=== PATIENT | female | born 1960 | race Caucasian/White ===

== ENCOUNTER → 2017-09-07 | Outpatient (CLI) | payer BC ==
[~2017-09-07] MED LIST: ATV/1 PO; FLUO20CA35 PO; HYDR1TAB96 PO
--- NOTE | 2017-09-07 12:33 | DIAGNOSTIC IMAGING REPORT ---
L-SPINE MIN 4 VIEWS ROUTINE HISTORY: Pain. Neuropathy. PARESTHESIA OF SKIN COMPARISON: 11/06/2015 FINDINGS: Moderate scoliosis. Minimal grade 1 reversal subluxation of L2 on L3 secondary to degenerative changes of the posterior elements. Moderately progressive degenerative disc change throughout the entire lumbar region most pronounced at L2-L3. No evidence for compression deformity. IMPRESSION: Degenerative disc change considered progressive from the prior study of 2015. Stable lumbar scoliosis. The above report was generated using voice recognition software. It may contain grammatical, syntax or spelling errors. Electronically signed by: Irving Camarena M.D. 09/07/2017 12:32 PM Dictated Date/Time: 09/07/2017 12:29 PM
--- NOTE | 2017-09-07 12:36 | DIAGNOSTIC IMAGING REPORT ---
RIGHT HIP 2 VIEWS HISTORY: PARESTHESIA OF SKIN COMPARISON: None. FINDINGS: There is no fracture or dislocation. Soft tissues are unremarkable. The visualized pelvic bones are intact. Cartilage spaces within the right hip are maintained for age. Small calcification overlying the proximal hamstring muscles is likely due to an old injury. IMPRESSION: No significant abnormality within the right hip. Electronically signed by: Eulogio Wolfe M.D. 09/07/2017 12:35 PM Dictated Date/Time: 09/07/2017 12:34 PM
== END | disposition home or self-care (01) ==
LOC: C.RAD1850 12:10
PROVIDERS: ATTEND Student in an Organized Health Care Education/Training Program
DX: R20.2 Paresthesia of skin (principal); M51.36 Other intervertebral disc degeneration, lumbar region; M41.26 Other idiopathic scoliosis, lumbar region

== ENCOUNTER 2017-11-28 16:25 | Inpatient (IN) | payer BC, OTHER ==
[~2017-11-28] VITALS: Ht 172.7 cm; Wt 88.6 kg
[2017-11-28] MEDS ORDERED: ONDANSETRON INJ 2 MG/ML 2 ML VIAL IV STA (16:57)
[2017-11-28] MEDS: HYDROmorphone INJ 1 MG/ML SYR IV PRN ×4 (17:25→22:49)
[2017-11-28 17:31] LABS: BASO % 0.2 %; BASO ABS # 0.02 K/uL (0-0.2); HEMOGLOBIN 15.2 g/dL (12.0-16.0); IG# 0.07 K/uL (0.00-0.02); LYMPH % 9.5 %; LYMPH ABS # 0.85 K/uL (1.2-3.4); MEAN CELL VOLUME 97.5 fL (80-100); MEAN CORPUSCULAR HEMOGLOBIN 32.2 pg (25-34); MEAN PLATELET VOLUME 8.5 fL (7.4-10.4); MONO % 4.6 %; MONO ABS # 0.41 K/uL (0.11-0.59); NEUT % 84.9 %; NEUT ABS # 7.58 K/uL (1.4-6.5); PLATELET COUNT 307 K/uL (130-400); RED CELL DISTRIBUTION WIDTH CV 14.6 % (11.5-14.5); WHITE BLOOD COUNT 8.93 K/uL (4.8-10.8)
[2017-11-28 17:49] LABS: BLOOD UREA NITROGEN 17 mg/dl (7-18); CALCIUM 8.4 mg/dl (8.5-10.1); CARBON DIOXIDE 28 mmol/L (21-32); CREATININE 0.95 mg/dl (0.60-1.20); GLUCOSE 163 mg/dl (70-99); POTASSIUM 4.1 mmol/L (3.5-5.1); SODIUM 134 mmol/L (136-145)
[2017-11-28] MEDS ORDERED: PRED10TA PO (19:47)
[2017-11-28] MEDS ORDERED: [UNRECOGNIZED DRUG - OTHER] PO (19:47)
[2017-11-28] MEDS ORDERED: ERGO500037 PO (19:47)
[2017-11-28] MEDS ORDERED: GABA-113 PO (19:47)
[2017-11-28] MEDS ORDERED: CLON-460 PO (19:47)
[2017-11-28] MEDS ORDERED: TOPI50TA16 PO (19:47)
[2017-11-28] MEDS ORDERED: CALC1TAB62 PO (19:47)
--- NOTE | 2017-11-28 19:47 | DIAGNOSTIC IMAGING REPORT ---
LUMBAR SPINE W/O CONTRAST CLINICAL HISTORY: 57 years-old Female with Back pain, lumbar, weakness, can't walk. Acute low back pain with weakness COMPARISON: Lumbar spine radiographs 09/07/2017 TECHNIQUE: Multiplanar, multi sequence MRI of the lumbar spine was performed without intravenous contrast. FINDINGS: Study is limited secondary to patient motion. Mild convex left curvature of the lumbar spine. The cardiology physician localizer images demonstrate no gross abnormality of the abdomen, pelvis or paraspinal structures. There is suggestion of diastases recti. No aortic aneurysm or pathologic adenopathy identified. There is no acute fracture or focal bone marrow edema. No acute subluxation identified. Modic type III endplate changes are seen at L2-L3. Signal within the thoracic spinal cord appears unremarkable. T12-L1: Moderate intervertebral disc space narrowing with posterior spondylitic spurring and circumferential annular disc bulge. Small right paracentral disc protrusion causes mild right lateral recess narrowing. No significant central canal or foraminal stenosis. L1-L2: Mild to moderate intervertebral disc space narrowing with posterior spondylitic spurring and small circumferential annular disc bulge. Ligamentum flavum thickening with moderate facet arthrosis. No central canal narrowing. There is mild right foraminal stenosis. Left foramen is patent. L2-L3: Moderate intervertebral disc space narrowing with posterior spondylitic spurring and moderate circumferential annular disc bulge. Additionally, there is a right paracentral/right lateral recess disc extrusion measuring up to 0.7 x 1.2 x 1.2 cm in AP, transverse and cranial, dimensions extending inferiorly to the level of the mid L3 vertebral body. Severe facet arthrosis with ligamentum flavum thickening also noted. These findings cause severe central canal (thecal sac narrowed to 3 mm in AP dimension), severe right lateral recess, severe right foraminal and mild left foraminal stenosis. L3-L4: No significant intervertebral disc space narrowing. Posterior spondylitic spurring with small moderate disc bulge and posterior annular fissure. Moderate facet arthrosis with small right facet effusion and ligamentum flavum thickening. Thecal sac is narrowed to 6 mm in AP dimension resulting in moderate central canal, moderate right foraminal and mild left foraminal stenosis. L4-L5: Mild intervertebral disc space narrowing with posterior spondylitic spurring with small posterior disc bulge and broad-based left lateral recess/left foraminal disc protrusion. Additionally, there is moderate facet arthrosis with ligamentum flavum thickening. These findings cause mild left lateral recess, and moderate to severe left foraminal narrowing without significant right foraminal or central canal stenosis. L5-S1: Moderate intervertebral disc space narrowing with posterior spondylitic spurring and small circumferential annular disc bulge. Severe facet arthrosis with ligamentum flavum thickening. There is severe left and mild to moderate right foraminal narrowing. No significant central canal stenosis. IMPRESSION: 1. At L2-L3, circumferential disc bulge with right paracentral/right lateral recess disc extrusion, severe facet arthrosis with ligamentum flavum thickening causes severe central canal, severe right lateral recess, severe right foraminal and mild left foraminal stenosis. 2. At L3-L4, posterior spondylitic spurring with small moderate disc bulge and posterior annular fissure with facet arthrosis causes moderate central canal, moderate right foraminal and mild left foraminal stenosis. 3. No acute fracture or subluxation identified. 4. Motion degraded exam. The above report was generated using voice recognition software. It may contain grammatical, syntax or spelling errors. Electronically signed by: Raymond Diaz M.D. 11/28/2017 7:45 PM Dictated Date/Time: 11/28/2017 7:32 PM
[2017-11-28] MEDS ORDERED: DEXAMETHASONE **PF** INJ 10 MG/ML VIAL IV ONE (21:00)
[2017-11-28] MEDS ORDERED: POLYETHYLENE (MIRALAX) 17 GM PACK PO PRN (23:30)
[2017-11-28] MEDS ORDERED: MAGNESIUM HYDROXIDE SUSP 30 ML UDC PO PRN (23:30)
[2017-11-28] MEDS ORDERED: ZOLPIDEM TARTRATE 5 MG TAB PO PRN (23:30)
[2017-11-28] MEDS ORDERED: ACETAMINOPHEN 325 MG TAB PO PRN (23:30)
[2017-11-28] MEDS ORDERED: ALUMINUM/MAGNESIUM/SIMETH (MAALOX MAX) 30 ML UDC PO PRN (23:30)
[2017-11-28] MEDS ORDERED: ONDANSETRON INJ 2 MG/ML 2 ML VIAL IV PRN (23:30)
[2017-11-28] MEDS ORDERED: HYDROCODONE/ACETAMINOPHEN 7.5/325MG TAB PO PRN (23:45)
[2017-11-28] MEDS ORDERED: KETOROLAC TROMETHAMINE 30 MG/ML VIAL IV STA (23:46)
[2017-11-29] MEDS ORDERED: SODIUM CHLORIDE 0.9% 1000ML 1,000 ML IV SCH
--- NOTE | 2017-11-29 00:01 | History and Physical ---
History & Physical Date & Time of Service: Nov 28, 2017 at 23:52 Chief Complaint: Unable To Walk Primary Care Physician: Paco Mello M.D. History of Present Illness Source: patient 57 y/o F Hx HTN, anxiety/depression, chronic lower back pain. The pt presents with worsening lower back pain over the course of a week. She cannot currently ambulate due to severe pain with weight bearing and movement. She denies LE numbness or incontinence. A lumbar MRI was obtained showing L2-L3, circumferential disc bulge with right paracentral/right lateral recess disc extrusion. 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 Smoking Status: Former Smoker Drug Use: none Marital Status: Housing status: lives with family Allergies Coded Allergies: No Known Allergies (Unverified , 11/28/17) Home Medications Scheduled Calcium & Phosphorus W/ Vitami (Calcium), 1 TAB PO DAILY Clonidine HCl (Clonidine HCl), 0.3 MG PO HS Ergocalciferol (Vitamin D 32728 Unit), 50,000 UNIT PO WK Fluoxetine (Prozac), 20 MG PO DAILY Gabapentin (Neurontin), 300 MG PO QID Prednisone Tab (Prednisone), 10 MG PO DAILY Topiramate (Topamax), 50 MG PO BID [Fentraphen], 20 MG PO DAILY Scheduled PRN Hydrocodone-Acetaminophen (Hydrocodone Bitartrate/Ac), 1-2 TABS PO Q4 PRN for Pain Lorazepam (Ativan), 1 MG PO BID PRN for Anxiety Review of Systems Constitutional: No fever, No chills, No sweats Eyes: No worsening of vision ENT: No hearing loss, No unusual epistaxis, No nasal symptoms Respiratory: No cough, No sputum, No wheezing Cardiovascular: No chest pain Abdomen: No pain, No nausea, No vomiting Musculoskeletal: + problem reported (Back pain as above) Genitourinary - Female: No dysuria, No urinary frequency, No urinary urgency Neurologic: No memory loss, No paralysis, No weakness Psychiatric: No depression symptoms Endocrine: No fatigue Hematologic / Lymphatic: No abnormal bleeding/bruising Integumentary: No rash Physical Exam Vital Signs Date Time Temp Pulse Resp B/P (MAP) Pulse Ox O2 Delivery O2 Flow Rate FiO2 11/28/17 22:51 96 94 Nasal Cannula 2.0 11/28/17 22:36 112 22 144/102 94 Room Air 11/28/17 21:31 121/82 11/28/17 21:06 105 97 Nasal Cannula 2.0 11/28/17 21:01 109/86 11/28/17 20:57 105 97 11/28/17 20:31 103/79 11/28/17 20:17 106 94 11/28/17 20:12 101 94 Nasal Cannula 2.0 11/28/17 20:01 124/86 11/28/17 19:42 100 94 11/28/17 19:37 103 16 109/62 96 Nasal Cannula 2.0 11/28/17 18:39 102 16 124/78 98 Nasal Cannula 2.0 11/28/17 17:43 97 Nasal Cannula 2.0 11/28/17 17:43 112 20 101/73 88 Room Air 11/28/17 17:19 112 20 110/79 94 Room Air 11/28/17 17:18 Room Air 11/28/17 16:35 36.9 123 18 131/95 95 Room Air General Appearance: WD/WN, no apparent distress, + pertinent finding ( Overweight, middle-aged female in no distress when lying still) Head: normocephalic Eyes: normal inspection ENT: normal ENT inspection, pharynx normal Neck: supple Respiratory/Chest: chest non-tender Cardiovascular: regular rate, rhythm, no edema, no gallop Abdomen/GI: normal bowel sounds, non tender, soft Back: normal inspection, no CVA tenderness Extremities/Musculoskelatal: normal inspection, no calf tenderness, normal capillary refill Neurologic/Psych: oriented x 3, + pertinent finding (Leg raising is limited as it triggers pain, dorsiflexion and light touch are impaired in the distal L extremity - no other deficits are present) Skin: normal color Diagnostics Laboratory Results Results Past 24 Hours Test 11/28/17 16:50 11/28/17 17:12 11/28/17 23:51 Range/Units Urine Color YELLOW Urine Appearance CLEAR CLEAR Urine pH 6.5 4.5-7.5 Urine Specific [place] 1.006 1.000-1.030 Urine Protein NEG NEG Urine Glucose (UA) NEG NEG Urine Ketones NEG NEG Urine Occult Blood 2+ NEG Urine Nitrite NEG NEG Urine Bilirubin NEG NEG Urine Urobilinogen NEG NEG Urine Leukocyte Esterase TRACE NEG Urine WBC (Auto) 0-5 /hpf Urine RBC (Auto) 0-4 /hpf Urine Hyaline Casts (Auto) 0-5 /lpf Urine Epithelial Cells (Auto) 0-5 /lpf Urine Bacteria (Auto) NEG Urine RBC 10-30 0-4 /hpf Urine WBC 1-5 0-5 /hpf Urine Epithelial Cells 5-10 0-5 /lpf Urine Bacteria NEG NEG Urine Hyaline Casts 0 0-5 /lpf White Blood Count 8.93 4.8-10.8 K/uL Red Blood Count 4.72 4.2-5.4 M/uL Hemoglobin 15.2 12.0-16.0 g/dL Hematocrit 46.0 37-47 % Mean Corpuscular Volume 97.5 80-100 fL Mean Corpuscular Hemoglobin 32.2 25-34 pg Mean Corpuscular Hemoglobin Concent 33.0 32-36 g/dl Platelet Count 307 130-400 K/uL Mean Platelet Volume 8.5 7.4-10.4 fL Neutrophils (%) (Auto) 84.9 % Lymphocytes (%) (Auto) 9.5 % Monocytes (%) (Auto) 4.6 % Eosinophils (%) (Auto) 0.0 % Basophils (%) (Auto) 0.2 % Neutrophils # (Auto) 7.58 1.4-6.5 K/uL Lymphocytes # (Auto) 0.85 1.2-3.4 K/uL Monocytes # (Auto) 0.41 0.11-0.59 K/uL Eosinophils # (Auto) 0.00 0-0.5 K/uL Basophils # (Auto) 0.02 0-0.2 K/uL RDW Standard Deviation 52.0 36.4-46.3 fL RDW Coefficient of Variation 14.6 11.5-14.5 % Immature Granulocyte % (Auto) 0.8 % Immature Granulocyte # (Auto) 0.07 0.00-0.02 K/uL Erythrocyte Sedimentation Rate 40 0-21 mm/hr Sodium Level 134 136-145 mmol/L Potassium Level 4.1 3.5-5.1 mmol/L Chloride Level 100 98-107 mmol/L Carbon Dioxide Level 28 21-32 mmol/L Anion Gap 6.0 3-11 mmol/L Blood Urea Nitrogen 17 7-18 mg/dl Creatinine 0.95 0.60-1.20 mg/dl Estimated GFR () 76.0 Estimated GFR (Non- 65.6 BUN/Creatinine Ratio 18.2 10-20 Random Glucose 163 70-99 mg/dl Calcium Level 8.4 8.5-10.1 mg/dl C-Reactive Protein 1.32 0-0.29 mg/dl Microbiology Results 11/28/17 Urine Culture, Received Pending Diagnostic Radiology Lumbar MRI 1. At L2-L3, circumferential disc bulge with right paracentral/right lateral recess disc extrusion, severe facet arthrosis with ligamentum flavum thickening causes severe central canal, severe right lateral recess, severe right foraminal and mild left foraminal stenosis. 2. At L3-L4, posterior spondylitic spurring with small moderate disc bulge and posterior annular fissure with facet arthrosis causes moderate central canal, moderate right foraminal and mild left foraminal stenosis. 3. No acute fracture or subluxation identified. Impression Assessment and Plan 57 y/o F Hx HTN, anxiety/depression, migraines, chronic lower back pain. The pt presents with worsening lower back pain over the course of a week. She cannot currently ambulate due to severe pain with weight bearing and movement. She denies LE numbness or incontinence. A lumbar MRI was obtained showing L2-L3, circumferential disc bulge with right paracentral/right lateral recess disc extrusion. 1) Lower back pain and gait difficulty - The pt states she has failed PT prior. We will treat her with supportive measures/pain control and consult her orthopedist AM. She received Decadron in the ER. We will increase her daily Prednisone dose. Cont Gabapentin. Additional PT will be to the discretion of her orthopedist. 2) HTN - Cont HS Clonidine. 3) Anxiety/Depression - Cont Fluoxetine, Lorazepam 4) Migraines - cont Topamax Full code - Heparin prophylaxis Total time for this admit including review of labs, meds, imaging, records - discussion with pt and ER attending - 35 min Resuscitation Status VTE Prophylaxis Will order VTE Prophylaxis: Yes
--- NOTE | 2017-11-29 00:14 | EMERGENCY ROOM VISIT NOTE ---
History Report prepared by Lewis: Kalin Hook Under the Supervision of: Dr. Kolton Mcgee M.D. First contact with patient: 16:48 Chief Complaint: BACK PAIN Stated Complaint: UNABLE TO WALK History of Present Illness The patient is a 57 year old female who presents to the Emergency Room with complaints of constant, severe back pain beginning a week ago. The patient states she experienced a flare-up yesterday that moved across her buttock that extends down to her legs. She reports she cannot stand up on her own because her legs are too weak to hold her. The patient notes she has a history of back pain, but it has never been this severe. She currently rates her discomfort a 10 /10 in severity. The patient states she had an x-ray and physical therapy. She reports she had to stop because she still has numbness in her right leg. The patient notes she has tried different medications, but none of them are working. Pt denies LOC, headache, fevers, chills, diaphoresis, visual changes, neck pain, chest pain, breathing difficulties, nausea, vomiting, abdominal pain , melena, hematochezia, urinary symptoms, numbness, lymphadenopathy, rash, or other complaints. Source of History: patient Onset: a week ago with a flare-up yesterday Position: back (lower) Symptom Intensity: 10/10 Timing: constant Modifying Factors (Worsening): other (standing) Associated Symptoms: + weakness (in her legs) Review of Systems See HPI for pertinent positives and negatives. A total of ten systems were reviewed and were otherwise negative. Past Medical & Surgical Medical Problems: (1) Frequent headaches (2) Gait difficulty Surgical Problems: (1) H/O: hysterectomy Family History Cancer Diabetes mellitus Social History Smoking Status: Former Smoker Alcohol Use: none Drug Use: none Marital Status: Housing Status: lives with family Current/Historical Medications Scheduled Calcium & Phosphorus W/ Vitami (Calcium), 1 TAB PO DAILY Clonidine HCl (Clonidine HCl), 0.3 MG PO HS Ergocalciferol (Vitamin D 51893 Unit), 50,000 UNIT PO WK Fluoxetine (Prozac), 20 MG PO DAILY Gabapentin (Neurontin), 300 MG PO QID Prednisone Tab (Prednisone), 10 MG PO DAILY Topiramate (Topamax), 50 MG PO BID [Fentraphen], 20 MG PO DAILY Scheduled PRN Hydrocodone-Acetaminophen (Hydrocodone Bitartrate/Ac), 1-2 TABS PO Q4 PRN for Pain Lorazepam (Ativan), 1 MG PO BID PRN for Anxiety Allergies Coded Allergies: No Known Allergies (Unverified , 11/28/17) Physical Exam Vital Signs Date Time Temp Pulse Resp B/P (MAP) Pulse Ox O2 Delivery O2 Flow Rate FiO2 11/28/17 22:51 96 94 Nasal Cannula 2.0 11/28/17 22:36 112 22 144/102 94 Room Air 11/28/17 21:31 121/82 11/28/17 21:06 105 97 Nasal Cannula 2.0 11/28/17 21:01 109/86 11/28/17 20:57 105 97 11/28/17 20:31 103/79 11/28/17 20:17 106 94 11/28/17 20:12 101 94 Nasal Cannula 2.0 11/28/17 20:01 124/86 11/28/17 19:42 100 94 11/28/17 19:37 103 16 109/62 96 Nasal Cannula 2.0 11/28/17 18:39 102 16 124/78 98 Nasal Cannula 2.0 11/28/17 17:43 97 Nasal Cannula 2.0 11/28/17 17:43 112 20 101/73 88 Room Air 11/28/17 17:19 112 20 110/79 94 Room Air 11/28/17 17:18 Room Air 11/28/17 16:35 36.9 123 18 131/95 95 Room Air Physical Exam GENERAL: Awake, alert, uncomfortable-appearing, in no distress HENT: Normocephalic, atraumatic. Oropharynx unremarkable. EYES: Normal conjunctiva. Sclera non-icteric. NECK: Supple. No nuchal rigidity. FROM. No masses. RESPIRATORY: Clear to auscultation. No wheezes. No rales. Normal respiratory effort. CARDIAC: Tachycardic rate. Normal rhythm. No murmurs. No rubs. Extremities warm and well perfused. Pulses equal. No JVD. GI: Soft, non-distended. No tenderness to palpation. No rebound or guarding. No masses. RECTAL: Deferred. MUSCULOSKELETAL: Atraumatic. Chest examination reveals no tenderness. The back is symmetrical on inspection without obvious abnormality. There is no CVA tenderness to palpation. No joint edema. LOWER EXTREMITIES: Calves are equal size bilaterally and non-tender. No edema. No discoloration. NEURO: Normal sensorium. No sensory or motor deficits noted. No saddle anesthesia. 2+ reflexes bilaterally. 4/5 strength with dorsi-plantar flexion. SKIN: No rash or jaundice noted. Medical Decision & Procedures ER Provider Diagnostic Interpretation: Radiology results as stated below per my review and radiologist interpretation: LUMBAR SPINE W/O CONTRAST CLINICAL HISTORY: 57 years-old Female with Back pain, lumbar, weakness, can't walk. Acute low back pain with weakness COMPARISON: Lumbar spine radiographs 09/07/2017 TECHNIQUE: Multiplanar, multi sequence MRI of the lumbar spine was performed without intravenous contrast. FINDINGS: Study is limited secondary to patient motion. Mild convex left curvature of the lumbar spine. The design consultant localizer images demonstrate no gross abnormality of the abdomen, pelvis or paraspinal structures. There is suggestion of diastases recti. No aortic aneurysm or pathologic adenopathy identified. There is no acute fracture or focal bone marrow edema. No acute subluxation identified. Modic type III endplate changes are seen at L2-L3. Signal within the thoracic spinal cord appears unremarkable. T12-L1: Moderate intervertebral disc space narrowing with posterior spondylitic spurring and circumferential annular disc bulge. Small right paracentral disc protrusion causes mild right lateral recess narrowing. No significant central canal or foraminal stenosis. L1-L2: Mild to moderate intervertebral disc space narrowing with posterior spondylitic spurring and small circumferential annular disc bulge. Ligamentum flavum thickening with moderate facet arthrosis. No central canal narrowing. There is mild right foraminal stenosis. Left foramen is patent. L2-L3: Moderate intervertebral disc space narrowing with posterior spondylitic spurring and moderate circumferential annular disc bulge. Additionally, there is a right paracentral/right lateral recess disc extrusion measuring up to 0.7 x 1.2 x 1.2 cm in AP, transverse and cranial, dimensions extending inferiorly to the level of the mid L3 vertebral body. Severe facet arthrosis with ligamentum flavum thickening also noted. These findings cause severe central canal (thecal sac narrowed to 3 mm in AP dimension), severe right lateral recess, severe right foraminal and mild left foraminal stenosis. L3-L4: No significant intervertebral disc space narrowing. Posterior spondylitic spurring with small moderate disc bulge and posterior annular fissure. Moderate facet arthrosis with small right facet effusion and ligamentum flavum thickening. Thecal sac is narrowed to 6 mm in AP dimension resulting in moderate central canal, moderate right foraminal and mild left foraminal stenosis. L4-L5: Mild intervertebral disc space narrowing with posterior spondylitic spurring with small posterior disc bulge and broad-based left lateral recess/left foraminal disc protrusion. Additionally, there is moderate facet arthrosis with ligamentum flavum thickening. These findings cause mild left lateral recess, and moderate to severe left foraminal narrowing without significant right foraminal or central canal stenosis. L5-S1: Moderate intervertebral disc space narrowing with posterior spondylitic spurring and small circumferential annular disc bulge. Severe facet arthrosis with ligamentum flavum thickening. There is severe left and mild to moderate right foraminal narrowing. No significant central canal stenosis. IMPRESSION: 1. At L2-L3, circumferential disc bulge with right paracentral/right lateral recess disc extrusion, severe facet arthrosis with ligamentum flavum thickening causes severe central canal, severe right lateral recess, severe right foraminal and mild left foraminal stenosis. 2. At L3-L4, posterior spondylitic spurring with small moderate disc bulge and posterior annular fissure with facet arthrosis causes moderate central canal, moderate right foraminal and mild left foraminal stenosis. 3. No acute fracture or subluxation identified. 4. Motion degraded exam. The above report was generated using voice recognition software. It may contain grammatical, syntax or spelling errors. Electronically signed by: Raymond Diaz M.D. 11/28/2017 7:45 PM Dictated Date/Time: 11/28/2017 7:32 PM Laboratory Results 11/28/17 17:12 Red Blood Count 4.72, Mean Corpuscular Volume 97.5, Mean Corpuscular Hemoglobin 32.2, Mean Corpuscular Hemoglobin Concent 33.0, Mean Platelet Volume 8.5, Neutrophils (%) (Auto) 84.9, Lymphocytes (%) (Auto) 9.5, Monocytes (%) (Auto) 4.6, Eosinophils (%) (Auto) 0.0, Basophils (%) (Auto) 0.2, Neutrophils # (Auto) 7.58, Lymphocytes # (Auto) 0.85, Monocytes # (Auto) 0.41, Eosinophils # (Auto) 0.00, Basophils # (Auto) 0.02 11/28/17 17:12 Test 11/28/17 16:50 11/28/17 17:12 11/28/17 23:51 Urine Color YELLOW Urine Appearance CLEAR (CLEAR) Urine pH 6.5 (4.5-7.5) Urine Specific [place] 1.006 (1.000-1.030) Urine Protein NEG (NEG) Urine Glucose (UA) NEG (NEG) Urine Ketones NEG (NEG) Urine Occult Blood 2+ (NEG) Urine Nitrite NEG (NEG) Urine Bilirubin NEG (NEG) Urine Urobilinogen NEG (NEG) Urine Leukocyte Esterase TRACE (NEG) Urine WBC (Auto) /hpf (0-5) Urine RBC (Auto) /hpf (0-4) Urine Hyaline Casts (Auto) /lpf (0-5) Urine Epithelial Cells (Auto) /lpf (0-5) Urine Bacteria (Auto) (NEG) Urine RBC 10-30 /hpf (0-4) Urine WBC 1-5 /hpf (0-5) Urine Epithelial Cells 5-10 /lpf (0-5) Urine Bacteria NEG (NEG) Urine Hyaline Casts 0 /lpf (0-5) White Blood Count 8.93 K/uL (4.8-10.8) Red Blood Count 4.72 M/uL (4.2-5.4) Hemoglobin 15.2 g/dL (12.0-16.0) Hematocrit 46.0 % (37-47) Mean Corpuscular Volume 97.5 fL (80-100) Mean Corpuscular Hemoglobin 32.2 pg (25-34) Mean Corpuscular Hemoglobin Concent 33.0 g/dl (32-36) Platelet Count 307 K/uL (130-400) Mean Platelet Volume 8.5 fL (7.4-10.4) Neutrophils (%) (Auto) 84.9 % Lymphocytes (%) (Auto) 9.5 % Monocytes (%) (Auto) 4.6 % Eosinophils (%) (Auto) 0.0 % Basophils (%) (Auto) 0.2 % Neutrophils # (Auto) 7.58 K/uL (1.4-6.5) Lymphocytes # (Auto) 0.85 K/uL (1.2-3.4) Monocytes # (Auto) 0.41 K/uL (0.11-0.59) Eosinophils # (Auto) 0.00 K/uL (0-0.5) Basophils # (Auto) 0.02 K/uL (0-0.2) RDW Standard Deviation 52.0 fL (36.4-46.3) RDW Coefficient of Variation 14.6 % (11.5-14.5) Immature Granulocyte % (Auto) 0.8 % Immature Granulocyte # (Auto) 0.07 K/uL (0.00-0.02) Erythrocyte Sedimentation Rate 40 mm/hr (0-21) Anion Gap 6.0 mmol/L (3-11) Estimated GFR () 76.0 Estimated GFR (Non- 65.6 BUN/Creatinine Ratio 18.2 (10-20) Calcium Level 8.4 mg/dl (8.5-10.1) C-Reactive Protein 1.32 mg/dl (0-0.29) Laboratory results reviewed by me Medications Administered Medications (Trade) Dose Ordered Sig/[place] Route Start Time Stop Time Status Last Admin Dose Admin Ondansetron HCl (Zofran Inj) 4 mg NOW STAT IV 11/28/17 16:57 11/28/17 16:59 DC 11/28/17 17:24 4 MG Hydromorphone HCl (Dilaudid Inj) 1 mg Q15M PRN IV 11/28/17 17:00 12/12/17 16:59 11/28/17 22:49 1 MG Dexamethasone Sodium Phosphate (Dexamethasone Inj Pf) 10 mg NOW ONCE IV 11/28/17 21:00 11/28/17 21:01 DC 11/28/17 21:13 10 MG ED Course 1654: The patient was evaluated in room B12B. A complete history and physical exam was performed. 1656: Ordered Ondansetron HCl 4mg IV 1700: Ordered Hydromorphone HCl 1mg IV 2100: Ordered Dexamethasone Sodium Phosphate 10mg IV 2123: I discussed the patient's case with Dr. Faith, [facility]. He states if the patient wants to be discharged, he will see her in the office. He notes if the patient is wants further evaluation, admit the patient to medicine and he will consult. 2139: I reevaluated the patient and discussed my consult with Dr. Faith. The patient would prefer to go home. The nursing staff is performing an ambulatory trial. 2233: Upon reexamination, the patient was not able to ambulate well. I discussed the test results and treatment plan with her. The patient will be evaluated for further management. 2241: I discussed the patient's case with Dr. Bangura [facility] Hospitalist. The patient will be evaluated for further management and care. Medical Decision Prior records/ancillary studies reviewed. Triage Nursing notes reviewed and agree them. Additional history obtained from the family. The patient's history was concerning for back pain. Differential diagnosis: Etiologies such as fracture, aortic disease, metastatic disease, cord compression, discitis, infection, renal colic, gastrointestinal, lumbago, sciatica, cauda equina, as well as others were entertained. Physical findings: As above. The patient was very uncomfortable. ER treatment provided: IV Dilaudid times multiple doses IV Zofran IV Decadron On reassessment the patient felt marginal better. Diagnostics interpreted by me: The labs revealed an unremarkable CBC. Inflammatory markers mildly elevated. Chemistry panel unremarkable. Imaging studies: MRI as above Consultation: A consultation was placed with Dr. Faith of orthopedic spine. The case was discussed. He offered to see the patient in the office but recommended admission if her pain was uncontrolled. Unfortunately patient had severe pain with attempted ambulation. She has significant disc herniation with impingement on the nerve roots. She agreed to come in the hospital. Consultation was made with internal medicine. The case was discussed and diagnostics were reviewed. The patient was evaluated in the ER for further treatment. Medication Reconcilliation Current Medication List: was personally reviewed by me Blood Pressure Screening Patient's blood pressure: Normal blood pressure Blood pressure disposition: Did not require urgent referral Consults Time Called: 2057 Consulting Physician: Yannick Escalante Returned Call: 2123 I discussed the patient's case with Yannick Escalante. He states if the patient wants to be discharged, he will see her in the office. He notes if the patient is wants further evaluation, admit the patient to medicine and he will consult. Additional Consults: Time Called: 2237 Consulted Physician: Dr. Bangura [facility] Hospitalist Returned Call: [phone] Additional Comments: I discussed the patient's case with Dr. Bangura, [facility] Hospitalist. The patient will be evaluated for further management and care. Impression Primary Impression: Lumbar herniated disc Additional Impressions: Ambulatory dysfunction Intractable back pain Scribe Attestation The scribe's documentation has been prepared under my direction and personally reviewed by me in its entirety. I confirm that the note above accurately reflects all work, treatment, procedures, and medical decision making performed by me. Departure Information Dispostion Being Evaluated By Hospitalist Referrals Paco Mello M.D. (PCP) Patient Instructions My [facility] Problem Qualifiers
[2017-11-29] MEDS ORDERED: IV FLUIDS COMPLETED PRN (00:30)
[2017-11-29 01:00] VITALS: BP 114/82; PULSE 95; TEMP 36.7; O2SAT 96; Ht 172.7 cm; Wt 88.6 kg
[2017-11-29 04:05] LABS: PTT PATIENT 27.7 SECONDS (21.0-31.0)
[2017-11-29] MEDS: HEPARIN SOD 5000 UNIT/0.5 ML CARP SQ SCH ×3 (05:29→21:40)
[2017-11-29] MEDS: HYDROCODONE/ACETAMINOPHEN 7.5/325MG TAB PO PRN ×2 (07:46→16:34)
[2017-11-29 08:16] VITALS: BP 120/86; PULSE 100; TEMP 36.3; O2SAT 94
[2017-11-29] MEDS: FLUOXETINE HCL 20 MG CAP PO SCH (08:16)
[2017-11-29] MEDS: GABAPENTIN 300 MG CAP PO SCH ×4 (08:16→21:41)
[2017-11-29] MEDS: TOPIRAMATE 50 MG TAB PO SCH ×2 (08:17→21:40)
[2017-11-29 09:18] VITALS: O2SAT 95
[2017-11-29] MEDS: HYDROmorphone INJ 1 MG/ML SYR IV PRN ×2 (12:09→20:05)
[2017-11-29 12:27] VITALS: BP 128/84; PULSE 114; TEMP 36.9; O2SAT 94
--- NOTE | 2017-11-29 13:28 | Hospitalist Progress Note ---
Hospitalist Progress Note Date of Service Nov 29, 2017. Subjective Pt evaluation today including: conversation w/ patient, conversation w/ family ( at bedside ), physical exam, lab review, review of studies, review of inpatient medication list Voiding: no voiding problems Patient resting in bed. Eating and drinking OK. Denies knowledge of any back injuries. Works at [employer]. Just ambulated to restroom with severe pain. RN to give PRN IV Dilaudid. Patient very tearful due to pain. 1 episode of bowel incontinence on Wednesday. Severe pain/numbness/tingling from lower back/hips to knees. No pain at rest and PRN are medications are controlling pain. Denied Lidoderm patch or Patient denies any fever, chills, sweats, lightheadedness, dizziness, vision changes, CP, palpitations, edema, SOB, wheezing, cough, abdominal pain, nausea, vomiting, diarrhea, urinary symptoms, melena, weakness, anxiety/depression, active bleeding, or new skin discoloration/changes. Medications Current Inpatient Medications Medications (Trade) Dose Ordered Sig/[place] Route Start Time Stop Time Status Last Admin Dose Admin Prednisone (PredniSONE TAB) 40 mg DAILY PO 11/29/17 09:00 12/29/17 08:59 11/29/17 08:17 40 MG Hydromorphone HCl (Dilaudid Inj) 1 mg Q3H PRN IV 11/28/17 23:30 12/12/17 23:29 11/29/17 12:09 1 MG Heparin Sodium (Porcine) (Heparin Sq 5000 Unit/0.5ml) 5,000 unit Q8H SQ 11/29/17 06:00 12/29/17 05:59 11/29/17 05:29 5,000 UNIT Acetaminophen (Tylenol Tab) 650 mg Q4H PRN PO 11/28/17 23:30 12/28/17 23:29 Al Hydrox/Mg Hydrox/Simethicone (Maalox Max Susp) 15 ml Q4H PRN PO 11/28/17 23:30 12/28/17 23:29 Magnesium Hydroxide (Milk Of Magnesia Susp) 30 ml Q6H PRN PO 11/28/17 23:30 12/28/17 23:29 Polyethylene (Miralax Powder Packet) 17 gm DAILY PRN PO 11/28/17 23:30 12/28/17 23:29 Ondansetron HCl (Zofran Inj) 4 mg Q6H PRN IV 11/28/17 23:30 12/28/17 23:29 Clonidine HCl (Catapres Tab) 0.3 mg HS PO 11/29/17 21:00 12/29/17 20:59 Fluoxetine HCl (Prozac Cap) 20 mg DAILY PO 11/29/17 09:00 12/29/17 08:59 11/29/17 08:16 20 MG Gabapentin (Neurontin Cap) 300 mg QID PO 11/29/17 09:00 12/29/17 08:59 11/29/17 08:16 300 MG Lorazepam (Ativan Tab) 1 mg BID PRN PO 11/28/17 23:45 12/28/17 23:44 Topiramate (Topamax Tab) 50 mg BID PO 11/29/17 09:00 12/29/17 08:59 11/29/17 08:17 50 MG Acetaminophen/ Hydrocodone Bitart (Yancey 7.5/325 Tab) 2 tab Q6 PRN PO 11/28/17 23:55 12/28/17 23:44 11/29/17 07:46 2 TAB Miscellaneous (Iv Fluids Completed) 1 ea PRN PRN N/A 11/29/17 00:30 11/29/18 00:29 Objective Vital Signs Date Time Temp Pulse Resp B/P (MAP) Pulse Ox O2 Delivery O2 Flow Rate FiO2 11/29/17 12:27 36.9 114 16 128/84 (99) 94 Room Air 11/29/17 09:18 95 Room Air 11/29/17 08:16 36.3 100 16 120/86 (97) 94 Room Air 11/29/17 07:50 Room Air 11/29/17 01:00 36.7 95 20 114/82 (93) 96 Room Air 11/29/17 01:00 96 Room Air 11/29/17 01:00 36.7 95 20 114/82 96 Room Air 11/29/17 00:29 124/78 11/29/17 00:26 91 18 95 Nasal Cannula 2.0 11/28/17 23:56 93 95 11/28/17 23:26 96 93 11/28/17 22:56 96 95 11/28/17 22:51 96 94 Nasal Cannula 2.0 11/28/17 22:36 112 22 144/102 94 Room Air 11/28/17 21:31 121/82 11/28/17 21:06 105 97 Nasal Cannula 2.0 11/28/17 21:01 109/86 11/28/17 20:57 105 97 11/28/17 20:31 103/79 11/28/17 20:17 106 94 11/28/17 20:12 101 94 Nasal Cannula 2.0 11/28/17 20:01 124/86 11/28/17 19:42 100 94 11/28/17 19:37 103 16 109/62 96 Nasal Cannula 2.0 11/28/17 18:39 102 16 124/78 98 Nasal Cannula 2.0 11/28/17 17:43 97 Nasal Cannula 2.0 11/28/17 17:43 112 20 101/73 88 Room Air 11/28/17 17:19 112 20 110/79 94 Room Air 11/28/17 17:18 Room Air 11/28/17 16:35 36.9 123 18 131/95 95 Room Air Physical Exam General Appearance: + mild distress Eyes: normal inspection, PERRL ENT: hearing grossly normal Neck: supple Respiratory/Chest: lungs clear, no respiratory distress, no accessory muscle use Cardiovascular: regular rate, rhythm Abdomen: normal bowel sounds, non tender, soft Extremities: no pedal edema, no calf tenderness Neurologic/Psychiatric: alert, oriented x 3, + motor weakness (mild weakness to bilateral LEs), + pertinent finding (tearful due to pain/situation ) Skin: normal color, warm/dry, no rash Laboratory Results Last 24 Hours Test 11/28/17 16:50 11/28/17 17:12 Urine Color YELLOW Urine Appearance CLEAR Urine pH 6.5 Urine Specific [place] 1.006 Urine Protein NEG Urine Glucose (UA) NEG Urine Ketones NEG Urine Occult Blood 2+ Urine Nitrite NEG Urine Bilirubin NEG Urine Urobilinogen NEG Urine Leukocyte Esterase TRACE Urine WBC (Auto) /hpf Urine RBC (Auto) /hpf Urine Hyaline Casts (Auto) /lpf Urine Epithelial Cells (Auto) /lpf Urine Bacteria (Auto) Urine RBC 10-30 /hpf Urine WBC 1-5 /hpf Urine Epithelial Cells 5-10 /lpf Urine Bacteria NEG Urine Hyaline Casts 0 /lpf White Blood Count 8.93 K/uL Red Blood Count 4.72 M/uL Hemoglobin 15.2 g/dL Hematocrit 46.0 % Mean Corpuscular Volume 97.5 fL Mean Corpuscular Hemoglobin 32.2 pg Mean Corpuscular Hemoglobin Concent 33.0 g/dl Platelet Count 307 K/uL Mean Platelet Volume 8.5 fL Neutrophils (%) (Auto) 84.9 % Lymphocytes (%) (Auto) 9.5 % Monocytes (%) (Auto) 4.6 % Eosinophils (%) (Auto) 0.0 % Basophils (%) (Auto) 0.2 % Neutrophils # (Auto) 7.58 K/uL Lymphocytes # (Auto) 0.85 K/uL Monocytes # (Auto) 0.41 K/uL Eosinophils # (Auto) 0.00 K/uL Basophils # (Auto) 0.02 K/uL RDW Standard Deviation 52.0 fL RDW Coefficient of Variation 14.6 % Immature Granulocyte % (Auto) 0.8 % Immature Granulocyte # (Auto) 0.07 K/uL Erythrocyte Sedimentation Rate 40 mm/hr Prothrombin Time 10.8 SECONDS Prothromb Time International Ratio 1.0 Activated Partial Thromboplast Time 27.7 SECONDS Partial Thromboplastin Ratio 1.1 Sodium Level 134 mmol/L Potassium Level 4.1 mmol/L Chloride Level 100 mmol/L Carbon Dioxide Level 28 mmol/L Anion Gap 6.0 mmol/L Blood Urea Nitrogen 17 mg/dl Creatinine 0.95 mg/dl Estimated GFR () 76.0 Estimated GFR (Non- 65.6 BUN/Creatinine Ratio 18.2 Random Glucose 163 mg/dl Calcium Level 8.4 mg/dl C-Reactive Protein 1.32 mg/dl Assessment and Plan 57 y/o F Hx HTN, anxiety/depression, migraines, chronic lower back pain. The pt presents with worsening lower back pain over the course of a week. She cannot currently ambulate due to severe pain with weight bearing and movement. She denies LE numbness or incontinence. A lumbar MRI was obtained showing L2-L3, circumferential disc bulge with right paracentral/right lateral recess disc extrusion. Lower back pain and gait difficulty: - Admitted to med/surg - Pain control w/ Yancey PRN and IV Dilaudid PRN. - Prednisone 40 mg daily, Gabapentin 300 mg QID - MRI: -- L2-L3, circumferential disc bulge with right paracentral/right lateral recess disc extrusion, severe facet arthrosis with ligamentum flavum thickening causes severe central canal, severe right lateral recess, severe right foraminal and mild left foraminal stenosis. -- At L3-L4, posterior spondylitic spurring with small moderate disc bulge and posterior annular fissure with facet arthrosis causes moderate central canal , moderate right foraminal and mild left foraminal stenosis. - PT/OT as per orthopedics - Orthopedics consulted, appreciate recommendations HTN- STABLE: Continue Clonidine 0.3 mg HS Anxiety, depression: Continue Fluoxetine, Lorazepam BID PRN Migraines: Continue Topamax 50 mg BID DVT prophylaxis: Heparin SQ TID Code status: LEVEL I, FULL Dispo: From home, lives w/ - discharge uncertain at this time
--- NOTE | 2017-11-29 15:18 | Orthopedic Consultation ---
Orthopedic Consultation Date of Consultation: Nov 29, 2017. Attending Physician: Marcos Cormier D.O. Reason for Consultation: Back and bilateral leg pain History of Present Illness This is a very pleasant 57-year-old female that had a history of worsening back and leg pain over the past several months. She has undergone both medical management as well as a course of physical therapy without significant improvement. Unfortunately over the past several days she has had a marked decline in status. She denies any precipitating trauma fall or event. She describes incapacitating pain and inability to ambulate. The pattern of pain is in the bilateral buttock anterior thighs. It does not extend below the knees. Standing and walking is remarkably difficult requiring the assistance of her family. She subsequently came to emergency room for evaluation. MRI was obtained and she was admitted for pain control. She denies any loss of bowel or bladder control. She describes bilateral quadricep weakness. Past Medical/Surgical History Medical Problems: (1) Ambulatory dysfunction Status: Acute (2) Intractable back pain Status: Acute (3) Lumbar herniated disc Status: Acute Family History Cancer Diabetes mellitus Social History Smoking Status: Former Smoker Drug Use: none Marital Status: Housing Status: lives with family Allergies Coded Allergies: No Known Allergies (Unverified , 11/28/17) Home Medications Scheduled Calcium & Phosphorus W/ Vitami (Calcium), 1 TAB PO DAILY Clonidine HCl (Clonidine HCl), 0.3 MG PO HS Ergocalciferol (Vitamin D 13034 Unit), 50,000 UNIT PO WK Fluoxetine (Prozac), 20 MG PO DAILY Gabapentin (Neurontin), 300 MG PO QID Prednisone Tab (Prednisone), 10 MG PO DAILY Topiramate (Topamax), 50 MG PO BID [Fentraphen], 20 MG PO DAILY Scheduled PRN Hydrocodone-Acetaminophen (Hydrocodone Bitartrate/Ac), 1-2 TABS PO Q4 PRN for Pain Lorazepam (Ativan), 1 MG PO BID PRN for Anxiety Current Inpatient Medications Current Inpatient Medications Medications (Trade) Dose Ordered Sig/[place] Route Start Time Stop Time Status Last Admin Dose Admin Prednisone (PredniSONE TAB) 40 mg DAILY PO 11/29/17 09:00 12/29/17 08:59 11/29/17 08:17 40 MG Hydromorphone HCl (Dilaudid Inj) 1 mg Q3H PRN IV 11/28/17 23:30 12/12/17 23:29 11/29/17 12:09 1 MG Heparin Sodium (Porcine) (Heparin Sq 5000 Unit/0.5ml) 5,000 unit Q8H SQ 11/29/17 06:00 12/29/17 05:59 11/29/17 13:55 5,000 UNIT Acetaminophen (Tylenol Tab) 650 mg Q4H PRN PO 11/28/17 23:30 12/28/17 23:29 Al Hydrox/Mg Hydrox/Simethicone (Maalox Max Susp) 15 ml Q4H PRN PO 11/28/17 23:30 12/28/17 23:29 Magnesium Hydroxide (Milk Of Magnesia Susp) 30 ml Q6H PRN PO 11/28/17 23:30 12/28/17 23:29 Polyethylene (Miralax Powder Packet) 17 gm DAILY PRN PO 11/28/17 23:30 12/28/17 23:29 Ondansetron HCl (Zofran Inj) 4 mg Q6H PRN IV 11/28/17 23:30 12/28/17 23:29 Clonidine HCl (Catapres Tab) 0.3 mg HS PO 11/29/17 21:00 12/29/17 20:59 Fluoxetine HCl (Prozac Cap) 20 mg DAILY PO 11/29/17 09:00 12/29/17 08:59 11/29/17 08:16 20 MG Gabapentin (Neurontin Cap) 300 mg QID PO 11/29/17 09:00 12/29/17 08:59 11/29/17 13:01 300 MG Lorazepam (Ativan Tab) 1 mg BID PRN PO 11/28/17 23:45 12/28/17 23:44 Topiramate (Topamax Tab) 50 mg BID PO 11/29/17 09:00 12/29/17 08:59 11/29/17 08:17 50 MG Acetaminophen/ Hydrocodone Bitart ([place] 7.5/325 Tab) 2 tab Q6 PRN PO 11/28/17 23:55 12/28/17 23:44 11/29/17 07:46 2 TAB Miscellaneous (Iv Fluids Completed) 1 ea PRN PRN N/A 11/29/17 00:30 3/19/19 00:29 Physical Exam Date Time Temp Pulse Resp B/P (MAP) Pulse Ox O2 Delivery O2 Flow Rate FiO2 11/29/17 12:27 36.9 114 16 128/84 (99) 94 Room Air 11/29/17 09:18 95 Room Air 11/29/17 08:16 36.3 100 16 120/86 (97) 94 Room Air 11/29/17 07:50 Room Air 11/29/17 01:00 36.7 95 20 114/82 (93) 96 Room Air 11/29/17 01:00 96 Room Air 11/29/17 01:00 36.7 95 20 114/82 96 Room Air 11/29/17 00:29 124/78 11/29/17 00:26 91 18 95 Nasal Cannula 2.0 11/28/17 23:56 93 95 11/28/17 23:26 96 93 11/28/17 22:56 96 95 11/28/17 22:51 96 94 Nasal Cannula 2.0 11/28/17 22:36 112 22 144/102 94 Room Air 11/28/17 21:31 121/82 11/28/17 21:06 105 97 Nasal Cannula 2.0 11/28/17 21:01 109/86 11/28/17 20:57 105 97 11/28/17 20:31 103/79 11/28/17 20:17 106 94 11/28/17 20:12 101 94 Nasal Cannula 2.0 11/28/17 20:01 124/86 11/28/17 19:42 100 94 11/28/17 19:37 103 16 109/62 96 Nasal Cannula 2.0 11/28/17 18:39 102 16 124/78 98 Nasal Cannula 2.0 11/28/17 17:43 97 Nasal Cannula 2.0 11/28/17 17:43 112 20 101/73 88 Room Air 11/28/17 17:19 112 20 110/79 94 Room Air 11/28/17 17:18 Room Air 11/28/17 16:35 36.9 123 18 131/95 95 Room Air On physical exam the patient is in obvious distress. She is however cooperative. She exhibits sensation to be intact bilateral lower extremities. Reasonable plantar flexion dorsiflexion. She has quadricep activation bilaterally but breakaway weakness secondary to pain. She has negative logroll. She has difficulty sitting up in bed without reproduction of pain. Again she is unable to ambulate. Laboratory Results Last 24 Hours Test 11/28/17 16:50 11/28/17 17:12 Urine Color YELLOW Urine Appearance CLEAR Urine pH 6.5 Urine Specific [place] 1.006 Urine Protein NEG Urine Glucose (UA) NEG Urine Ketones NEG Urine Occult Blood 2+ Urine Nitrite NEG Urine Bilirubin NEG Urine Urobilinogen NEG Urine Leukocyte Esterase TRACE Urine WBC (Auto) /hpf Urine RBC (Auto) /hpf Urine Hyaline Casts (Auto) /lpf Urine Epithelial Cells (Auto) /lpf Urine Bacteria (Auto) Urine RBC 10-30 /hpf Urine WBC 1-5 /hpf Urine Epithelial Cells 5-10 /lpf Urine Bacteria NEG Urine Hyaline Casts 0 /lpf White Blood Count 8.93 K/uL Red Blood Count 4.72 M/uL Hemoglobin 15.2 g/dL Hematocrit 46.0 % Mean Corpuscular Volume 97.5 fL Mean Corpuscular Hemoglobin 32.2 pg Mean Corpuscular Hemoglobin Concent 33.0 g/dl Platelet Count 307 K/uL Mean Platelet Volume 8.5 fL Neutrophils (%) (Auto) 84.9 % Lymphocytes (%) (Auto) 9.5 % Monocytes (%) (Auto) 4.6 % Eosinophils (%) (Auto) 0.0 % Basophils (%) (Auto) 0.2 % Neutrophils # (Auto) 7.58 K/uL Lymphocytes # (Auto) 0.85 K/uL Monocytes # (Auto) 0.41 K/uL Eosinophils # (Auto) 0.00 K/uL Basophils # (Auto) 0.02 K/uL RDW Standard Deviation 52.0 fL RDW Coefficient of Variation 14.6 % Immature Granulocyte % (Auto) 0.8 % Immature Granulocyte # (Auto) 0.07 K/uL Erythrocyte Sedimentation Rate 40 mm/hr Prothrombin Time 10.8 SECONDS Prothromb Time International Ratio 1.0 Activated Partial Thromboplast Time 27.7 SECONDS Partial Thromboplastin Ratio 1.1 Sodium Level 134 mmol/L Potassium Level 4.1 mmol/L Chloride Level 100 mmol/L Carbon Dioxide Level 28 mmol/L Anion Gap 6.0 mmol/L Blood Urea Nitrogen 17 mg/dl Creatinine 0.95 mg/dl Estimated GFR () 76.0 Estimated GFR (Non- 65.6 BUN/Creatinine Ratio 18.2 Random Glucose 163 mg/dl Calcium Level 8.4 mg/dl C-Reactive Protein 1.32 mg/dl Assessment & Plan Assessment acute disc herniation L2-3 with pre-existing spinal stenosis. Plan I reviewed her case and MRI findings as well as x-rays obtained in August 2017 with the patient and her . MRI demonstrates evidence of severe facet hypertrophy facet cyst at the T2-3 level with a disc herniation and caudal migration and right-sided neural foraminal stenosis. She also exhibits significant central lateral recess disease at L3-4. X-rays obtained in August demonstrate marked disc space collapse vacuum phenomenon at L2-3 with degenerative curvature. This point she has severe stenosis has failed therapy and medical management could consider surgical intervention. It would require at minimum a lumbar decompression and fusion at L2-3 possibly incorporating L3- 4 for adequate decompression and improvement of her lumbar alignment. Risks benefits pros cons and alternatives were outlined in detail. Risks include but not limited to from anesthesia blindness stroke paralysis nerve damage blood loss current transfusion infection requiring reoperation. Benefits of the marked improvement of her neurogenic claudication and her ability to ambulate. At this time she is strongly considering surgery. We will begin a medical workup.
[2017-11-29 15:28] VITALS: BP 145/97; PULSE 109; TEMP 36.3; O2SAT 94
[2017-11-29] MEDS: LORAZEPAM 1 MG TAB PO PRN (21:40)
[2017-11-29] MEDS: CLONIDINE HCL 0.3 MG TAB PO SCH (21:41)
[2017-11-29 22:28] VITALS: BP 119/80; PULSE 86; TEMP 36.5; O2SAT 96
[2017-11-30] MEDS: HEPARIN SOD 5000 UNIT/0.5 ML CARP SQ SCH ×3 (06:06→21:52)
[2017-11-30] MEDS: HYDROmorphone INJ 1 MG/ML SYR IV PRN ×3 (06:06→22:02)
[2017-11-30 07:18] VITALS: BP 111/73; PULSE 89; TEMP 36.5; O2SAT 96
--- NOTE | 2017-11-30 09:01 | DIAGNOSTIC IMAGING REPORT ---
CHEST ONE VIEW PORTABLE HISTORY: 57 years-old Female [place] OP preoperative exam. No acute chest complaints. COMPARISON: Chest radiograph 05/30/2014 TECHNIQUE: Portable AP view of the chest FINDINGS: Cardiomediastinal and hilar silhouettes are within normal limits. There is no pneumothorax, pleural effusion, focal airspace consolidation or overt pulmonary edema. The bones of the chest appear grossly intact. IMPRESSION: No acute process. The above report was generated using voice recognition software. It may contain grammatical, syntax or spelling errors. Electronically signed by: Raymond Diaz M.D. 11/30/2017 8:59 AM Dictated Date/Time: 11/30/2017 8:57 AM
[2017-11-30] MEDS: TOPIRAMATE 50 MG TAB PO SCH ×2 (09:37→21:53)
[2017-11-30] MEDS: GABAPENTIN 300 MG CAP PO SCH ×4 (09:37→21:54)
[2017-11-30] MEDS: FLUOXETINE HCL 20 MG CAP PO SCH (09:37)
[2017-11-30] MEDS: HYDROCODONE/ACETAMINOPHEN 7.5/325MG TAB PO PRN (09:38)
--- NOTE | 2017-11-30 13:41 | Progress Note ---
Progress Note Date of Service Nov 30, 2017. Progress Note I met with the patient today and her mother. We reviewed the surgery and what it would entail. She still very much would like to proceed in light of her second severe pain in and inability to ambulate. She was made n.p.o. after midnight tonight we will plan for surgery in the a.m.
--- NOTE | 2017-11-30 14:25 | Progress Note ---
Subjective Date of Service: Nov 30, 2017. Subjective Pt evaluation today including: conversation w/ patient, physical exam, lab review, review of inpatient medication list Pain: low back pain PO Intake: adequate Voiding: no voiding problems patient still having pain, plan for OR tomorrow no history of issues with anesthesia CXR normal EKG normal sinus Problem List Medical Problems: (1) Ambulatory dysfunction Status: Acute (2) Intractable back pain Status: Acute (3) Lumbar herniated disc Status: Acute Review of Systems Musculoskeletal: + joint pain (low back) All Other Systems: Reviewed and Negative Medications Current Inpatient Medications Medications (Trade) Dose Ordered Sig/[place] Route Start Time Stop Time Status Last Admin Dose Admin Prednisone (PredniSONE TAB) 40 mg DAILY PO 11/29/17 09:00 12/29/17 08:59 11/30/17 09:37 40 MG Hydromorphone HCl (Dilaudid Inj) 1 mg Q3H PRN IV 11/28/17 23:30 12/12/17 23:29 11/30/17 06:06 1 MG Heparin Sodium (Porcine) (Heparin Sq 5000 Unit/0.5ml) 5,000 unit Q8H SQ 11/29/17 06:00 12/29/17 05:59 11/30/17 06:06 5,000 UNIT Acetaminophen (Tylenol Tab) 650 mg Q4H PRN PO 11/28/17 23:30 12/28/17 23:29 Al Hydrox/Mg Hydrox/Simethicone (Maalox Max Susp) 15 ml Q4H PRN PO 11/28/17 23:30 12/28/17 23:29 Magnesium Hydroxide (Milk Of Magnesia Susp) 30 ml Q6H PRN PO 11/28/17 23:30 12/28/17 23:29 Polyethylene (Miralax Powder Packet) 17 gm DAILY PRN PO 11/28/17 23:30 12/28/17 23:29 Ondansetron HCl (Zofran Inj) 4 mg Q6H PRN IV 11/28/17 23:30 12/28/17 23:29 Clonidine HCl (Catapres Tab) 0.3 mg HS PO 11/29/17 21:00 12/29/17 20:59 11/29/17 21:41 0.3 MG Fluoxetine HCl (Prozac Cap) 20 mg DAILY PO 11/29/17 09:00 12/29/17 08:59 11/30/17 09:37 20 MG Gabapentin (Neurontin Cap) 300 mg QID PO 11/29/17 09:00 12/29/17 08:59 11/30/17 14:15 300 MG Lorazepam (Ativan Tab) 1 mg BID PRN PO 11/28/17 23:45 12/28/17 23:44 11/29/17 21:40 1 MG Topiramate (Topamax Tab) 50 mg BID PO 11/29/17 09:00 12/29/17 08:59 11/30/17 09:37 50 MG Acetaminophen/ Hydrocodone Bitart ([place] 7.5/325 Tab) 2 tab Q6 PRN PO 11/28/17 23:55 12/28/17 23:44 11/30/17 09:38 2 TAB Miscellaneous (Iv Fluids Completed) 1 ea PRN PRN N/A 11/29/17 00:30 11/29/18 00:29 Objective Vital Signs Date Time Temp Pulse Resp B/P (MAP) Pulse Ox O2 Delivery O2 Flow Rate FiO2 11/30/17 08:00 Room Air 11/30/17 07:18 36.5 89 18 111/73 (86) 96 Room Air 11/29/17 23:45 Room Air 11/29/17 22:28 36.5 86 18 119/80 (93) 96 Room Air 11/29/17 15:28 36.3 109 18 145/97 (113) 94 Room Air 11/29/17 15:20 Room Air Physical Exam General Appearance: WD/WN, no apparent distress Eyes: normal inspection, EOMI, sclerae normal ENT: normal ENT inspection, hearing grossly normal, pharynx normal Neck: supple, no adenopathy, no JVD, trachea midline Respiratory/Chest: chest non-tender, lungs clear, normal breath sounds, no respiratory distress, no accessory muscle use Cardiovascular: regular rate, rhythm, no edema, no gallop, no JVD, no murmur Abdomen: normal bowel sounds, non tender, soft, no organomegaly Extremities: normal inspection, no pedal edema, no calf tenderness, pelvis stable, + pertinent finding (decreased ROM of low back, tender to palpation) Neurologic/Psychiatric: dials inspector II-XII nml as tested, no motor/sensory deficits, alert, normal mood/affect, oriented x 3 Skin: normal color, warm/dry, no rash Assessment and Plan 57 y/o F Hx HTN, anxiety/depression, migraines, chronic lower back pain. The pt presents with worsening lower back pain over the course of a week. She cannot currently ambulate due to severe pain with weight bearing and movement. She denies LE numbness or incontinence. A lumbar MRI was obtained showing L2-L3, circumferential disc bulge with right paracentral/right lateral recess disc extrusion. Lower back pain and gait difficulty: - MRI: L2-L3, circumferential disc bulge with right paracentral/right lateral recess disc extrusion, severe facet arthrosis with ligamentum flavum thickening causes severe central canal, severe right lateral recess, severe right foraminal and mild left foraminal stenosis. plan for OR tomorrow continue Prednisone, Dilaudid medically optimized for OR, EKG and CXR normal, CBC and BMP normal no h/o ND, CVA, CKD, DM or valve disease HTN- STABLE: Continue Clonidine 0.3 mg HS Anxiety, depression: Continue Fluoxetine, Lorazepam BID PRN Migraines: Continue Topamax 50 mg BID DVT prophylaxis: Heparin SQ TID Code status: LEVEL I, FULL Dispo: surgery tomorrow, d/c plan will depend on how she recovers
[2017-11-30 15:31] VITALS: BP 134/86; PULSE 83; TEMP 36.7; O2SAT 95
[2017-11-30] MEDS: CLONIDINE HCL 0.3 MG TAB PO SCH (21:53)
[2017-11-30] MEDS: LORAZEPAM 1 MG TAB PO PRN (22:02)
[2017-11-30 22:27] VITALS: BP 122/86; PULSE 97; TEMP 36.9; O2SAT 95
[2017-12-01] VITALS (11 sets, daily range): BP systolic 107–130; BP diastolic 70–90; PULSE 88–112; TEMP 36.7–36.9; O2SAT 90–99
[2017-12-01] MEDS: SODIUM CHLORIDE 0.9% 500ML 500 ML IV SCH ×2 (00:26→06:17)
[2017-12-01] MEDS: HEPARIN SOD 5000 UNIT/0.5 ML CARP SQ SCH ×2 (05:30→13:45)
[2017-12-01 06:02] LABS: HEMATOCRIT 40.9 % (37-47); HEMOGLOBIN 13.2 g/dL (12.0-16.0); MEAN CELL VOLUME 96.9 fL (80-100); MEAN CORPUSCULAR HEMOGLOBIN 31.3 pg (25-34); MEAN CORPUSCULAR HGB CONC 32.3 g/dl (32-36); MEAN PLATELET VOLUME 8.5 fL (7.4-10.4); PLATELET COUNT 302 K/uL (130-400); RED CELL DISTRIBUTION WIDTH CV 14.5 % (11.5-14.5); RED CELL DISTRIBUTION WIDTH SD 51.5 fL (36.4-46.3); WHITE BLOOD COUNT 9.84 K/uL (4.8-10.8)
[2017-12-01] MEDS: FLUOXETINE HCL 20 MG CAP PO SCH (07:27)
[2017-12-01] MEDS: GABAPENTIN 300 MG CAP PO SCH ×4 (07:27→21:12)
[2017-12-01] MEDS: TOPIRAMATE 50 MG TAB PO SCH ×2 (07:27→21:12)
[2017-12-01] MEDS: HYDROmorphone INJ 1 MG/ML SYR IV PRN (08:04)
[2017-12-01] MEDS ORDERED: MIDAZOLAM HCL 1 MG/ML 2ML VIAL ONE (09:26)
[2017-12-01] MEDS ORDERED: FENTANYL CITRATE INJ 50 MCG/1 ML 2 ML VIAL ONE ×4 (09:26→11:47)
--- NOTE | 2017-12-01 09:32 | History & Physical Bridge Note ---
H&P Re-Evaluation Bridge Note: I have examined the patient, reviewed the History & Physical and in the interval since the performance of the History & Physical I have noted the following changes of clinical significance: No changes noted
[2017-12-01] MEDS ORDERED: CEFAZOLIN SOD 2000MG/15 ML IV PUSH IV ONE (09:46)
[2017-12-01] MEDS ORDERED: BACITRACIN 50000 UNIT VIAL ONE (09:47)
[2017-12-01] MEDS ORDERED: BUPIVACAINE/EPINEPHRINE 0.5% MPF 1:200,000 30 ML VIAL ONE (09:47)
[2017-12-01] MEDS ORDERED: HYDROmorphone INJ 2 MG/ML SYR/VIAL ONE ×2 (10:22→12:09)
[2017-12-01] MEDS ORDERED: EpHEDrine SULFATE INJ 50 MG/ML AMP IV PRN (10:30)
[2017-12-01] MEDS ORDERED: PROMETHAZINE HCL INJ 6.25 MG in SODIUM CHLORIDE 0.9% 50ML 50 ML IV PRN (10:30)
[2017-12-01] MEDS ORDERED: ONDANSETRON INJ 2 MG/ML 2 ML VIAL IV PRN ×2 (10:30→12:15)
[2017-12-01] MEDS ORDERED: HYDROmorphone INJ 1 MG/ML SYR IV PRN (10:30)
[2017-12-01] MEDS ORDERED: ATROPINE SULFATE 0.1 MG/ML 5ML SYR IV PRN (10:30)
[2017-12-01] MEDS ORDERED: FLOSEAL HEMOSTATIC MATRIX 10ML TOP ONE (11:56)
[2017-12-01] MEDS ORDERED: SODIUM CHLORIDE 0.9% 1000ML 1,000 ML IV SCH (12:05)
--- NOTE | 2017-12-01 12:05 | [facility] Operative Report ---
Operative Report Operative Date Dec 01, 2017. Pre-Operative Diagnosis Acute disc herniation L2-3 with pre-existing spinal stenosis Post-Operative Diagnosis Acute disc herniation L2-3 with pre-existing spinal stenosis Procedure(s) Performed 1. Lumbar decompression medial facetectomy foraminotomy L2-3 L3-4. #2 posterior spinal fusion L2-3 L3-4. #3 placement of posterior segmental instrumentation L2-3 L3-4. #4 interbody fusion L2-3 L3-4. #5 placed a peek cage 11 x 26 mm L2-3 L3-4. #6 placement of locally harvested morcellized autograft in the posterior lateral gutters. #7 placement of infuse collagen sponge combined with mesh graft in the posterolateral gutters and ostial amp bone graft in the interbody spaces. Surgeon Dr. Grayson Faith Bushel Girl Surgeon(s) Felipa Hayes PA-C Estimated Blood Loss 250ml Findings Severe spinal stenosis with herniated nucleus pulposus Specimens None per surgeon Anesthesia Type General Description of Procedure Patient was met with preoperatively case discussed all questions addressed. After informed consent obtained patient was taken to the operative suite underwent intubation and placed in the prone position on the Dev table on top of the Afshin frame. All bony prominences were well-padded eyes inspected to ensure no external gusher placed upon them. This point the lumbar spine was prepped and draped in normal sterile fashion. Sharp dissection with the assistance of Bovie cautery was performed down to and exposing the lamina and transverse processes of L2-L3-L4 bilaterally. From a caudal to cephalad fashion a complete laminectomy of L3 and L2 was performed addressing severe lateral recess foraminal disease as well as massive disc herniation at 2 3. If this complete pedicle screws were placed at L2-L3-L4 bilaterally with the assistance of fluoroscopy and appropriately sized cheryl placed. Through a transforaminal approach on the right complete discectomy of L2 through was performed endplates curetted to subcortical bleeding bone and an 11 x 26 mm peek cage filled with osteopenia bone graft tapped in position. Then proceeded to L3-4 and again through a trans-foraminal approach complete discectomy performed endplates. To subcortical bleeding bone and 11 x 26 mm peek cage filled with ostial and bone graft tapped in position. The rods were then locked in the final position bilaterally. The transverse processes of L2-L3-L4 burred to subcortical bleeding bone. If his counts sponge mass graft and locally harvested morcellized allograft was placed in the posterior gutters. A 15 round SUMAN drain was inserted. Incision was then closed with 1 Vicryl fascia 2 -0 Vicryl subcutaneous layer and 4-0 Monocryl for final skin closure Steri- Strips sterile dressings placed. Patient will continue to PACU stable condition. Please note Felipa Griffith was present throughout the entire procedure involved in patient positioning complex portions of the surgery and fashion closure. I attest to the content of the Intraoperative Record and any orders documented therein. Any exceptions are noted below.
[2017-12-01] MEDS ORDERED: NEOSTIGMINE METHYLSULFATE 1 MG/ML 10ML VIAL ONE (12:11)
[2017-12-01] MEDS ORDERED: DEXAMETHASONE SOD INJ 4 MG/ML VIAL ONE (12:11)
[2017-12-01] MEDS ORDERED: KETOROLAC TROMETHAMINE 30 MG/ML VIAL ONE (12:11)
[2017-12-01] MEDS ORDERED: PHENYLEPHRINE 100MCG/ML 5ML SYR ONE (12:11)
[2017-12-01] MEDS ORDERED: ONDANSETRON INJ 2 MG/ML 2 ML VIAL ONE (12:11)
[2017-12-01] MEDS ORDERED: GLYCOPYRROLATE INJ 0.2 MG/ML VIAL ONE (12:11)
[2017-12-01] MEDS ORDERED: ROCURONIUM BROMIDE 10 MG/ML 5 ML VIAL IV ONE (12:11)
[2017-12-01] MEDS ORDERED: LIDOCAINE HCL 2% 2 ML VIAL (20MG/ML) ONE (12:11)
[2017-12-01] MEDS ORDERED: PROPOFOL IV EMULSION 10 MG/ML 20 ML VIAL IV ONE (12:11)
[2017-12-01] MEDS ORDERED: ALUMINUM/MAGNESIUM SUSP 30 ML UDC PO PRN (12:15)
[2017-12-01] MEDS ORDERED: NALOXONE HCL 0.4 MG/1 ML VIAL/CARP IV PRN ×2 (12:15)
[2017-12-01] MEDS ORDERED: BISACODYL 10 MG SUPP PR PRN (12:15)
[2017-12-01] MEDS ORDERED: FAMOTIDINE 20 MG TAB PO PRN (12:15)
[2017-12-01] MEDS ORDERED: hydrOXYzine HCL 25 MG TAB PO PRN (12:15)
[2017-12-01] MEDS ORDERED: MAGNESIUM HYDROXIDE SUSP 30 ML UDC PO PRN (12:15)
[2017-12-01] MEDS ORDERED: DO NOT ADMINISTER PNEUMOCOCCAL VACCINE PRN (12:15)
[2017-12-01] MEDS ORDERED: LORAZEPAM 0.5 MG TAB PO PRN (12:15)
[2017-12-01] MEDS ORDERED: METOCLOPRAMIDE HCL INJ 5 MG/ML 2 ML VIAL IV PRN (12:15)
[2017-12-01] MEDS ORDERED: SOD PHOSPHATE/SOD BIPHOSPHATE ENEMA 132 ML BTL PR PRN (12:15)
[2017-12-01] MEDS ORDERED: ACETAMINOPHEN IV 100 ML IV PRN (12:15)
[2017-12-01] MEDS ORDERED: ACETAMINOPHEN 500 MG TAB PO PRN (12:15)
[2017-12-01] MEDS ORDERED: PROMETHAZINE HCL INJ 12.5 MG in SODIUM CHLORIDE 0.9% 50ML 50 ML IV PRN (12:15)
[2017-12-01] MEDS ORDERED: DO NOT ADMINISTER FLU VACCINE PRN (12:15)
--- NOTE | 2017-12-01 12:17 | DIAGNOSTIC IMAGING REPORT ---
INTRAOPERATIVE LUMBAR SPINE 3 VIEWS CLINICAL HISTORY: L2-L4 spinal decompression and fusion COMPARISON STUDY: 09/07/2017 FINDINGS: 20 seconds of fluoroscopic time was utilized. 3 intraoperative fluoroscopic spot images are provided for interpretation. There are postsurgical changes of L2-3 and L3-4 discectomy and interbody fusions. There are pedicle screws at the L2, L3, and L4 levels with adjoining spinal rods. IMPRESSION: Postsurgical changes of an L2-L4 spinal decompression and fusion Electronically signed by: Arnulfo Herman M.D. 12/01/2017 12:16 PM Dictated Date/Time: 12/01/2017 12:14 PM
[2017-12-01] MEDS: FENTANYL CITRATE INJ 50 MCG/1 ML 2 ML VIAL IV PRN ×4 (12:31→12:46)
[2017-12-01] MEDS: HYDROmorphone HCL 0.5MG/ML 50 ML CASSETTE IV PRN ×4 (12:32→22:26)
[2017-12-01] MEDS ORDERED: LORAZEPAM 2 MG/ML 1 ML VIAL ONE (12:59)
[2017-12-01] MEDS: LORAZEPAM INJ 0.5 MG in SYRINGE 0 ML IV PRN ×2 (13:02→21:44)
--- NOTE | 2017-12-01 13:03 | Anesthesiology Progress Note ---
Anesthesia Post Op Note Date & Time Dec 01, 2017 at 13:03 Vital Signs Pain Intensity: 3 Vital Signs Past 12 Hours Date Time Temp Pulse Resp B/P (MAP) Pulse Ox O2 Delivery O2 Flow Rate FiO2 12/01/17 12:50 36.0 96 20 128/89 100 Nasal Cannula 4 12/01/17 12:40 94 20 138/87 100 Oxymask 10 12/01/17 12:30 64 14 123/85 100 Oxymask 10 12/01/17 12:22 36.1 92 12 144/79 100 Oxymask 10 12/01/17 08:01 98 Room Air 12/01/17 08:00 Room Air 12/01/17 07:59 36.7 90 14 130/90 (103) 98 Room Air Notes Mental Status: alert / awake / arousable, participated in evaluation Pt Amnestic to Procedure: Yes Nausea / Vomiting: adequately controlled Pain: adequately controlled Airway Patency, RR, SpO2: stable & adequate BP & HR: stable & adequate Hydration State: stable & adequate Anesthetic Complications: no major complications apparent
[2017-12-01] MEDS: SODIUM CHLORIDE 0.9% 1000ML 1,000 ML IV SCH ×2 (13:41→20:17)
--- NOTE | 2017-12-01 14:14 | Hospitalist Progress Note ---
Hospitalist Progress Note Date of Service Dec 01, 2017. Subjective Pt evaluation today including: conversation w/ patient, conversation w/ family ( at bedside ), physical exam, lab review, review of inpatient medication list Voiding: ohara catheter in place Patient resting in bed. Feeling well. No pain. Has COMMISSARY ASSISTANT pump. Has not eaten/drank anything since procedure. No BM/flatus postop. Patient denies any fever, chills, sweats, lightheadedness, dizziness, vision changes, CP, palpitations, edema, SOB, wheezing, cough, abdominal pain, nausea, vomiting, diarrhea, urinary symptoms, melena, numbness/tingling, weakness, muscle/joint pain, anxiety/depression, active bleeding, or new skin discoloration/changes. Medications Current Inpatient Medications Medications (Trade) Dose Ordered Sig/[place] Route Start Time Stop Time Status Last Admin Dose Admin Prednisone (PredniSONE TAB) 40 mg DAILY PO 11/29/17 09:00 12/29/17 08:59 11/30/17 09:37 40 MG Hydromorphone HCl (Dilaudid Inj) 1 mg Q3H PRN IV 11/28/17 23:30 12/12/17 23:29 12/01/17 08:04 1 MG Heparin Sodium (Porcine) (Heparin Sq 5000 Unit/0.5ml) 5,000 unit Q8H SQ 11/29/17 06:00 12/29/17 05:59 12/01/17 13:45 5,000 UNIT Polyethylene (Miralax Powder Packet) 17 gm DAILY PRN PO 11/28/17 23:30 12/28/17 23:29 Clonidine HCl (Catapres Tab) 0.3 mg HS PO 11/29/17 21:00 12/29/17 20:59 11/30/17 21:53 0.3 MG Fluoxetine HCl (Prozac Cap) 20 mg DAILY PO 11/29/17 09:00 12/29/17 08:59 11/30/17 09:37 20 MG Gabapentin (Neurontin Cap) 300 mg QID PO 11/29/17 09:00 12/29/17 08:59 12/01/17 13:41 300 MG Topiramate (Topamax Tab) 50 mg BID PO 11/29/17 09:00 12/29/17 08:59 11/30/17 21:53 50 MG Acetaminophen/ Hydrocodone Bitart ([place] 7.5/325 Tab) 2 tab Q6 PRN PO 11/28/17 23:55 12/28/17 23:44 11/30/17 09:38 2 TAB Miscellaneous (Iv Fluids Completed) 1 ea PRN PRN N/A 11/29/17 00:30 11/29/18 00:29 Fentanyl Citrate (Fentanyl Inj) 50 mcg Q5M PRN IV 12/01/17 10:30 12/01/17 16:00 12/01/17 12:46 50 MCG Hydromorphone HCl (Dilaudid Inj) 0.5 mg Q5M PRN IV 12/01/17 10:30 12/01/17 16:00 Ondansetron HCl (Zofran Inj) 4 mg ONE PRN IV 12/01/17 10:30 Promethazine HCl 6.25 mg/Sodium Chloride 50.25 ml @ 202 mls/hr ONE PRN IV 12/01/17 10:30 Ephedrine Sulfate (EpHEDrine SULFATE INJ) 5 mg Q5M PRN IV 12/01/17 10:30 12/01/17 16:00 Atropine Sulfate (Atropine Sulfate 0.1mg/ml Inj) 0.5 mg Q1M PRN IV 12/01/17 10:30 12/01/17 16:00 Promethazine HCl 12.5 mg/Sodium Chloride 50.5 ml @ 202 mls/hr Q6H PRN IV 12/01/17 12:15 12/31/17 12:14 Ondansetron HCl (Zofran Inj) 4 mg Q6H PRN IV 12/01/17 12:15 12/31/17 12:14 Metoclopramide HCl (Reglan Inj) 10 mg Q6H PRN IV 12/01/17 12:15 12/31/17 12:14 Lorazepam (Ativan Tab) 0.5 mg Q8H PRN PO 12/01/17 12:15 12/31/17 12:14 Lorazepam 0.5 mg/ Syringe 0.25 ml @ 1 mls/min Q8H PRN IV 12/01/17 12:15 12/31/17 12:14 12/01/17 13:02 1 MLS/MIN Pneumococcal Polysaccharide Vaccine 1 ea PRN PRN N/A 12/01/17 12:15 12/31/17 12:14 Influenza Virus Vacc Triv Types A&B 1 ea PRN PRN N/A 12/01/17 12:15 12/31/17 12:14 Polyethylene (Miralax Powder Packet) 17 gm Q6 PO 12/03/17 06:00 01/02/18 05:59 Bisacodyl (Dulcolax Supp) 10 mg DAILY PRN ID 12/01/17 12:15 12/31/17 12:14 Magnesium Hydroxide (Milk Of Magnesia Susp) 30 ml DAILY PRN PO 12/01/17 12:15 12/31/17 12:14 Hydromorphone HCl (Dilaudid Inj) 0.5-1mg prn moder... Q3H PRN IV 12/02/17 06:00 12/16/17 05:59 Oxycodone HCl (Roxicodone Immediate Rel Tab) 5-10mg prn moderate to sev... Q4H PRN PO 12/02/17 06:00 12/16/17 05:59 Cefazolin Sodium 2000 mg/Syringe 15 ml @ 3.75 mls/ min Q8H IV 12/01/17 18:00 12/02/17 02:03 Sodium Chloride 1,000 ml @ 150 mls/hr Q6H40M IV 12/01/17 12:05 12/31/17 12:04 12/01/17 13:41 150 MLS/HR Acetaminophen (Tylenol Tab) 1,000 mg Q8H PRN PO 12/01/17 12:15 12/31/17 12:14 Acetaminophen 100 ml @ 400 mls/hr Q8H PRN IV 12/01/17 12:15 12/31/17 12:14 Naloxone HCl (Narcan Inj) 0.1 mg Q5M PRN IV 12/01/17 12:15 12/31/17 12:14 Senna/Docusate Sodium (Senokot S Tab) 2 tab HS PO 12/01/17 21:00 12/31/17 20:59 Sodium Biphosphate/ Sodium Phosphate (Fleet Enema) 132 ml ONE PRN ID 12/01/17 12:15 12/31/17 12:14 Hydroxyzine HCl (Vistaril Tab) 25 mg Q8H PRN PO 12/01/17 12:15 12/31/17 12:14 Al Hydroxide/Mg Hydroxide (Maalox Susp) 30 ml Q6H PRN PO 12/01/17 12:15 12/31/17 12:14 Famotidine (Pepcid Tab) 20 mg Q12 PRN PO 12/01/17 12:15 12/31/17 12:14 Diphenhydramine HCl (Benadryl Cap) 25 mg Q6H PRN PO 12/01/17 12:15 12/31/17 12:14 Miscellaneous Information (Discontinue COMMISSARY ASSISTANT) 1 ea TODAY@0600 ONCE N/A 12/02/17 06:00 12/02/17 06:01 Naloxone HCl (Narcan Inj) 0.1 mg Q5M PRN IV 12/01/17 12:15 12/02/17 06:00 Hydromorphone HCl (Dilaudid Web Pressman) 25 mg PRN PRN IV 12/01/17 12:15 12/02/17 06:00 12/01/17 13:23 25 MG Sodium Chloride 1,000 ml @ 15 mls/hr Q24H IV 12/01/17 12:05 12/02/17 06:00 Objective Vital Signs Date Time Temp Pulse Resp B/P (MAP) Pulse Ox O2 Delivery O2 Flow Rate FiO2 12/01/17 13:33 36.8 103 16 120/82 (95) 96 Nasal Cannula 4.0 12/01/17 13:32 96 Nasal Cannula 4.0 12/01/17 13:00 102 18 121/86 100 Oxymask 4 12/01/17 12:50 36.0 96 20 128/89 100 Nasal Cannula 4 12/01/17 12:40 94 20 138/87 100 Oxymask 10 12/01/17 12:30 64 14 123/85 100 Oxymask 10 12/01/17 12:22 36.1 92 12 144/79 100 Oxymask 10 12/01/17 08:01 98 Room Air 12/01/17 08:00 Room Air 12/01/17 07:59 36.7 90 14 130/90 (103) 98 Room Air 11/30/17 23:15 Room Air 11/30/17 22:27 36.9 97 17 122/86 (98) 95 Room Air 11/30/17 15:31 36.7 83 17 134/86 (102) 95 Room Air 11/30/17 15:06 Room Air Physical Exam General Appearance: no apparent distress, + pertinent finding (O2 NC ) Eyes: normal inspection, PERRL ENT: hearing grossly normal Neck: supple Respiratory/Chest: lungs clear, no respiratory distress, no accessory muscle use Cardiovascular: regular rate, rhythm Abdomen: normal bowel sounds, non tender, soft Extremities: no pedal edema, no calf tenderness Neurologic/Psychiatric: no motor/sensory deficits, alert, normal mood/affect, oriented x 3 Skin: normal color, warm/dry, no rash Laboratory Results Last 24 Hours Test 12/01/17 05:31 White Blood Count 9.84 K/uL Red Blood Count 4.22 M/uL Hemoglobin 13.2 g/dL Hematocrit 40.9 % Mean Corpuscular Volume 96.9 fL Mean Corpuscular Hemoglobin 31.3 pg Mean Corpuscular Hemoglobin Concent 32.3 g/dl RDW Standard Deviation 51.5 fL RDW Coefficient of Variation 14.5 % Platelet Count 302 K/uL Mean Platelet Volume 8.5 fL Assessment and Plan 57 y/o F Hx HTN, anxiety/depression, migraines, chronic lower back pain. The pt presents with worsening lower back pain over the course of a week. She cannot currently ambulate due to severe pain with weight bearing and movement. She denies LE numbness or incontinence. A lumbar MRI was obtained showing L2-L3 , circumferential disc bulge with right paracentral/right lateral recess disc extrusion. Lower back pain and gait difficulty s/p lumbar surgery by Dr. Faith on 12/01: - Surgical management, pain management, PT/OT, and DVT prophylaxis as per orthopedics - Bowel regimen ordered - Encourage incentive spirometer - Prednisone 40 mg daily, Gabapentin 300 mg QID HTN- STABLE: Continue Clonidine 0.3 mg HS Anxiety, depression: Continue Fluoxetine, Lorazepam BID PRN Migraines: Continue Topamax 50 mg BID GI prophylaxis: Pepcid BID PRN DVT prophylaxis: As per orthopedics Code status: LEVEL I, FULL Dispo: From home, lives w/ - PT/OT as per orthopedics to assess discharge needs
[2017-12-01] MEDS: CEFAZOLIN IV 2,000 MG in SYRINGE 0 ML IV SCH (18:43)
[2017-12-01] MEDS: CLONIDINE HCL 0.3 MG TAB PO SCH (21:12)
[2017-12-01] MEDS: DOCUSATE SODIUM/SENNA 50/8.6MG TAB PO SCH (21:12)
[2017-12-02] VITALS (7 sets, daily range): BP systolic 88–148; BP diastolic 51–93; PULSE 88–122; TEMP 37–37.6; O2SAT 94–97
[2017-12-02] MEDS: SODIUM CHLORIDE 0.9% 1000ML 1,000 ML IV SCH (01:29)
[2017-12-02] MEDS: CEFAZOLIN IV 2,000 MG in SYRINGE 0 ML IV SCH (01:29)
[2017-12-02] MEDS ORDERED: DC PCA ONE (06:00)
[2017-12-02] MEDS ORDERED: HYDROmorphone INJ 0.5 MG/0.5 ML SYR IV PRN (06:00)
[2017-12-02] MEDS ORDERED: NURSING VERBAL MED ORDER ONE (06:15)
[2017-12-02 06:44] LABS: BASO % 0.1 %; BASO ABS # 0.01 K/uL (0-0.2); HEMATOCRIT 35.6 % (37-47); HEMOGLOBIN 11.4 g/dL (12.0-16.0); IG# 0.08 K/uL (0.00-0.02); LYMPH % 13.2 %; LYMPH ABS # 1.93 K/uL (1.2-3.4); MEAN CELL VOLUME 96.2 fL (80-100); MEAN CORPUSCULAR HEMOGLOBIN 30.8 pg (25-34); MEAN PLATELET VOLUME 8.6 fL (7.4-10.4); MONO % 12.4 %; MONO ABS # 1.81 K/uL (0.11-0.59); NEUT % 73.8 %; NEUT ABS # 10.82 K/uL (1.4-6.5); PLATELET COUNT 275 K/uL (130-400); RED CELL DISTRIBUTION WIDTH SD 49.8 fL (36.4-46.3); WHITE BLOOD COUNT 14.65 K/uL (4.8-10.8)
[2017-12-02 07:22] LABS: CALCIUM 8.2 mg/dl (8.5-10.1); CREATININE 0.73 mg/dl (0.60-1.20); POTASSIUM 3.5 mmol/L (3.5-5.1)
[2017-12-02] MEDS: TOPIRAMATE 50 MG TAB PO SCH ×2 (08:29→22:07)
[2017-12-02] MEDS: FLUOXETINE HCL 20 MG CAP PO SCH (08:29)
[2017-12-02] MEDS: GABAPENTIN 300 MG CAP PO SCH ×4 (08:29→22:07)
[2017-12-02] MEDS: OXYCODONE HCL IR 5 MG TAB (IMMEDIATE RELEASE) PO PRN ×4 (08:30→22:12)
--- NOTE | 2017-12-02 10:31 | Hospitalist Progress Note ---
Hospitalist Progress Note Date of Service Dec 02, 2017. Subjective Pt evaluation today including: conversation w/ patient, conversation w/ family ( at bedside ), physical exam, lab review, review of inpatient medication list Voiding: ohara catheter in place (draining clear/yellow urine ) Patient resting in bed. Just worked w/ PT so pain is worse. Otherwise well controlled. Eating and drinking OK. States she had a BM this AM. +flatus. +anxiety. Had little sleep last night. PRN Ativan didn't work. Tearful while in room. Vistaril PRN ordered- RN to give dose. Patient denies any fever, chills, sweats, lightheadedness, dizziness, vision changes, CP, palpitations, edema, SOB, wheezing, cough, abdominal pain, nausea, vomiting, diarrhea, urinary symptoms, melena, numbness/tingling, weakness, depression, active bleeding, or new skin discoloration/changes. Medications Current Inpatient Medications Medications (Trade) Dose Ordered Sig/[place] Route Start Time Stop Time Status Last Admin Dose Admin Hydromorphone HCl (Dilaudid Inj) 1 mg Q3H PRN IV 11/28/17 23:30 12/12/17 23:29 12/01/17 08:04 1 MG Polyethylene (Miralax Powder Packet) 17 gm DAILY PRN PO 11/28/17 23:30 12/28/17 23:29 Clonidine HCl (Catapres Tab) 0.3 mg HS PO 11/29/17 21:00 12/29/17 20:59 12/01/17 21:12 0.3 MG Fluoxetine HCl (Prozac Cap) 20 mg DAILY PO 11/29/17 09:00 12/29/17 08:59 12/02/17 08:29 20 MG Gabapentin (Neurontin Cap) 300 mg QID PO 11/29/17 09:00 12/29/17 08:59 12/02/17 08:29 300 MG Topiramate (Topamax Tab) 50 mg BID PO 11/29/17 09:00 12/29/17 08:59 12/02/17 08:29 50 MG Acetaminophen/ Hydrocodone Bitart ([place] 7.5/325 Tab) 2 tab Q6 PRN PO 11/28/17 23:55 12/28/17 23:44 11/30/17 09:38 2 TAB Miscellaneous (Iv Fluids Completed) 1 ea PRN PRN N/A 11/29/17 00:30 11/29/18 00:29 Ondansetron HCl (Zofran Inj) 4 mg ONE PRN IV 12/01/17 10:30 Promethazine HCl 6.25 mg/Sodium Chloride 50.25 ml @ 202 mls/hr ONE PRN IV 12/01/17 10:30 Promethazine HCl 12.5 mg/Sodium Chloride 50.5 ml @ 202 mls/hr Q6H PRN IV 12/01/17 12:15 12/31/17 12:14 Ondansetron HCl (Zofran Inj) 4 mg Q6H PRN IV 12/01/17 12:15 12/31/17 12:14 Metoclopramide HCl (Reglan Inj) 10 mg Q6H PRN IV 12/01/17 12:15 12/31/17 12:14 Lorazepam (Ativan Tab) 0.5 mg Q8H PRN PO 12/01/17 12:15 12/31/17 12:14 Lorazepam 0.5 mg/ Syringe 0.25 ml @ 1 mls/min Q8H PRN IV 12/01/17 12:15 12/31/17 12:14 12/01/17 21:44 1 MLS/MIN Pneumococcal Polysaccharide Vaccine 1 ea PRN PRN N/A 12/01/17 12:15 12/31/17 12:14 Influenza Virus Vacc Triv Types A&B 1 ea PRN PRN N/A 12/01/17 12:15 12/31/17 12:14 Polyethylene (Miralax Powder Packet) 17 gm Q6 PO 12/03/17 06:00 01/02/18 05:59 Bisacodyl (Dulcolax Supp) 10 mg DAILY PRN IN 12/01/17 12:15 12/31/17 12:14 Magnesium Hydroxide (Milk Of Magnesia Susp) 30 ml DAILY PRN PO 12/01/17 12:15 12/31/17 12:14 Hydromorphone HCl (Dilaudid Inj) 0.5-1mg prn moder... Q3H PRN IV 12/02/17 06:00 12/16/17 05:59 Oxycodone HCl (Roxicodone Immediate Rel Tab) 5-10mg prn moderate to sev... Q4H PRN PO 12/02/17 06:00 12/16/17 05:59 12/02/17 08:30 10 MG Acetaminophen (Tylenol Tab) 1,000 mg Q8H PRN PO 12/01/17 12:15 12/31/17 12:14 Acetaminophen 100 ml @ 400 mls/hr Q8H PRN IV 12/01/17 12:15 12/31/17 12:14 Naloxone HCl (Narcan Inj) 0.1 mg Q5M PRN IV 12/01/17 12:15 12/31/17 12:14 Senna/Docusate Sodium (Senokot S Tab) 2 tab HS PO 12/01/17 21:00 12/31/17 20:59 12/01/17 21:12 2 TAB Sodium Biphosphate/ Sodium Phosphate (Fleet Enema) 132 ml ONE PRN IN 12/01/17 12:15 12/31/17 12:14 Hydroxyzine HCl (Vistaril Tab) 25 mg Q8H PRN PO 12/01/17 12:15 12/31/17 12:14 Al Hydroxide/Mg Hydroxide (Maalox Susp) 30 ml Q6H PRN PO 12/01/17 12:15 12/31/17 12:14 Famotidine (Pepcid Tab) 20 mg Q12 PRN PO 12/01/17 12:15 12/31/17 12:14 Diphenhydramine HCl (Benadryl Cap) 25 mg Q6H PRN PO 12/01/17 12:15 12/31/17 12:14 Objective Vital Signs Date Time Temp Pulse Resp B/P (MAP) Pulse Ox O2 Delivery O2 Flow Rate FiO2 12/02/17 10:12 122 96 12/02/17 08:00 Room Air 12/02/17 07:42 37.1 108 17 139/81 (100) 95 Room Air 12/02/17 03:24 37.0 88 16 132/78 (96) 94 Room Air 12/01/17 23:08 36.9 88 16 108/70 (83) 94 Room Air 12/01/17 19:26 36.9 94 18 118/75 (89) 97 Room Air 12/01/17 16:20 36.7 112 17 107/71 (83) 98 Nasal Cannula 2.0 Humidified Oxygen 12/01/17 15:30 Nasal Cannula 2.0 Humidified Oxygen 12/01/17 15:20 36.9 111 20 121/83 (96) 99 Nasal Cannula 2.0 Humidified Oxygen 12/01/17 14:19 90 Room Air 12/01/17 14:19 96 Humidified Oxygen 2.0 12/01/17 14:18 36.8 102 20 123/81 (95) 99 Humidified Oxygen 2.0 12/01/17 13:49 100 16 110/74 (86) 98 Nasal Cannula 4.0 12/01/17 13:33 36.8 103 16 120/82 (95) 96 Nasal Cannula 4.0 12/01/17 13:32 96 Nasal Cannula 4.0 12/01/17 13:00 102 18 121/86 100 Oxymask 4 12/01/17 12:50 36.0 96 20 128/89 100 Nasal Cannula 4 12/01/17 12:40 94 20 138/87 100 Oxymask 10 12/01/17 12:30 64 14 123/85 100 Oxymask 10 12/01/17 12:22 36.1 92 12 144/79 100 Oxymask 10 Physical Exam General Appearance: no apparent distress Eyes: normal inspection, PERRL ENT: hearing grossly normal Neck: supple Respiratory/Chest: lungs clear, no respiratory distress, no accessory muscle use Cardiovascular: regular rate, rhythm Abdomen: normal bowel sounds, non tender, soft Extremities: no pedal edema, no calf tenderness, + pertinent finding (back site C/D/I; SUMAN drain w/ bloody output ) Neurologic/Psychiatric: no motor/sensory deficits, alert, oriented x 3, + pertinent finding (anxious/tearful ) Skin: normal color, warm/dry, no rash Laboratory Results Last 24 Hours Test 12/02/17 06:33 White Blood Count 14.65 K/uL Red Blood Count 3.70 M/uL Hemoglobin 11.4 g/dL Hematocrit 35.6 % Mean Corpuscular Volume 96.2 fL Mean Corpuscular Hemoglobin 30.8 pg Mean Corpuscular Hemoglobin Concent 32.0 g/dl Platelet Count 275 K/uL Mean Platelet Volume 8.6 fL Neutrophils (%) (Auto) 73.8 % Lymphocytes (%) (Auto) 13.2 % Monocytes (%) (Auto) 12.4 % Eosinophils (%) (Auto) 0.0 % Basophils (%) (Auto) 0.1 % Neutrophils # (Auto) 10.82 K/uL Lymphocytes # (Auto) 1.93 K/uL Monocytes # (Auto) 1.81 K/uL Eosinophils # (Auto) 0.00 K/uL Basophils # (Auto) 0.01 K/uL RDW Standard Deviation 49.8 fL RDW Coefficient of Variation 14.0 % Immature Granulocyte % (Auto) 0.5 % Immature Granulocyte # (Auto) 0.08 K/uL Sodium Level 140 mmol/L Potassium Level 3.5 mmol/L Chloride Level 108 mmol/L Carbon Dioxide Level 26 mmol/L Anion Gap 6.0 mmol/L Blood Urea Nitrogen 12 mg/dl Creatinine 0.73 mg/dl Est Creatinine Clear Calc Drug Dose 96.6 ml/min Estimated GFR () 104.5 Estimated GFR (Non- 90.1 BUN/Creatinine Ratio 17.1 Random Glucose 93 mg/dl Calcium Level 8.2 mg/dl Assessment and Plan 57 y/o F Hx HTN, anxiety/depression, migraines, chronic lower back pain. The pt presents with worsening lower back pain over the course of a week. She cannot currently ambulate due to severe pain with weight bearing and movement. She denies LE numbness or incontinence. A lumbar MRI was obtained showing L2-L3 , circumferential disc bulge with right paracentral/right lateral recess disc extrusion. Lower back pain and gait difficulty s/p lumbar surgery by Dr. Faith on 12/01: - Surgical management, pain management, PT/OT, and DVT prophylaxis as per orthopedics - Bowel regimen ordered - Encourage incentive spirometer - Prednisone 40 mg daily, Gabapentin 300 mg QID - Follow postop CBC- leukocytosis, likely secondary from postop response- no s/ s of infection, continue to monitor Acute blood loss anemia in postop setting- STABLE: - Hgb 11.4 today from 15.2 at admission - Follow H&H and transfuse PRN for hgb < 7.0-8.0 HTN- STABLE: Continue Clonidine 0.3 mg HS Anxiety, depression- STABLE: Continue Fluoxetine, Lorazepam BID PRN, Vistaril PRN Migraines: Continue Topamax 50 mg BID GI prophylaxis: Pepcid BID PRN DVT prophylaxis: As per orthopedics Code status: LEVEL I, FULL Dispo: From home, lives w/ - PT/OT and CM consulted- PT recommending home w/ [facility]
--- NOTE | 2017-12-02 14:02 | Progress Note ---
Progress Note Date of Service Dec 02, 2017. Progress Note Patient's back pain is controlled. Her leg symptoms are markedly improved. On exam she is in the chair at the bedside has good strength testing. Assessment status post lumbar decompression fusion. Plan at this time will continue with physical therapy assess her progress hopefully discharge home this weekend.
[2017-12-02] MEDS ORDERED: RXC5 PO (15:55)
--- NOTE | 2017-12-02 15:56 | Discharge Instructions ---
Discharge Instructions Date of Service Dec 02, 2017. Admission Reason for Admission: Gait Difficulty Discharge Discharge Diagnosis / Problem: lumbar stenosis Discharge Goals Goal(s): Improve function Activity Recommendations Activity Limitations: per Instructions/Follow-up section . Instructions / Follow-Up Instructions / Follow-Up ACTIVITY RECOMMENDATIONS: SELF CARE INSTRUCTIONS AFTER THORACIC/LUMBAR FUSIONS 1. You may walk to your tolerance. It is good exercise for your legs and back. Expect some back and intermittent leg aches and pains. 2. You may perform "counter-top" level activities (make a sandwich, belgica with a project, etc.). 3. No bending or lifting of more than 10 pounds or back twisting of any nature (roll like a log when turning in bed). 4. You may ride in a car for 20-30 minutes at a time. No driving until after your first visit with your doctor. 5. Frequent changes of position and restricting sitting to 30 minutes at a time will help limit the amount of back spasms and stiffness you may experience. 6. You may discontinue the use of ambulatory aids (cane, crutches, etc.) once your strength and confidence allow. 7. You may inspector tester sorter the shower and let water strike your incision when you arrive home at least once daily. Do not take a tub bath, sit in a hot tub or go into a swimming pool until after your first recheck in the office. SPECIAL CARE INSTRUCTIONS: VERY IMPORTANT TO READ AND REVIEW A. Your surgical incision has been closed with a cosmetic suture under the skin that will dissolve in about 6 weeks. In 14 days, you can use a pair of clean scissors and cut the suture that is left outside of the skin at the ends of your incision. 1. The small skin tapes can be removed 7 days after surgery if they have not fallen off by that point. 2. You may keep the wound open to air as much as possible to promote healing after post-op day number 5 unless told otherwise by your doctor. 3. If you think the wound looks like it is becoming infected (redness or worsening drainage) and/or you are experiencing fever, chill or worsening back pain and muscle spasms, contact the office so that we may evaluate you as soon as possible. B. Complications are uncommon, but please contact us if you have any signs or symptoms of: 1. wound infection (fever higher than 102.5 degrees F, redness, separation of wound, drainage, or increasing pain from the incision) 2. blood clots in legs (pain, swelling, redness and warmth in legs) 3. urinary tract infection (fever higher than 102.5 degrees F, burning upon urination or increased frequency of urination) 4. nerve problems (inability to walk on your toes or heels, numbness, loss of bowel or bladder control) 5. any other symptoms that concern you C. Please call the office at if you have any concerns or questions about your operation or recovery. D. No smoking! Smoking drastically decreases the chance of a solid fusion. E. Do not take any anti-inflammatory medications (Indocin, Advil, Motrin, Aspirin, Naprosyn, etc.) as these may inhibit the chance of a solid fusion. Tylenol is okay to take for pain. MANAGING PAIN AFTER SPINAL SURGERY 1. Narcotic medication is intended for short-term use and will be provided for surgical pain. Surgical pain usually lasts for a period of 4-6 weeks. Narcotic medication includes Percocet, Vicodin, Darvocet, Tylenol #3 or Lortab. 2. Longer-term pain is more appropriately treated with non-narcotic medication such as Tylenol ES. 3. Muscle spasm is not appropriately treated with narcotics. Muscle relaxers such as Soma, Flexeril or Skelaxin can be used along with Tylenol ES. 4. Remember that we all live with some "aches and pains". This is not unusual or uncommon after an injury or as we get older. a. Back pain is expected and may include muscle spasms for 4 to 6 weeks after surgery. The pain should gradually improve. If the pain worsens for no apparent reason, please contact the office. b. Intermittent leg pain may also be experienced and should not be concerned about unless it worsens for no apparent reason. If so, please contact the office. 5. We will provide appropriate medication within the normal guidelines of their prescribed use. We will also be very cautious and aware of potential abuse and extended duration of patients' medication needs. a. Pain medications are for your comfort and to assist with sleep and rest so that the tissue can heal. They are not provided in order to return to normal activity and should not be used through the day. To do so or worsening pain at night can result from ongoing tissue damage and development of tolerance to the prescribed medicine. 6. Please allow 2-3 days to process refills. Prescriptions will not be mailed but must be picked up at the office. FOLLOW UP VISIT: Keep your scheduled follow-up appointment. Any questions, please call the office at . Current Hospital Diet Patient's current hospital diet: Regular Diet Discharge Diet Recommended Diet: Regular Diet Procedures Procedures Performed: 1. Lumbar decompression medial facetectomy foraminotomy L2-3 L3-4. #2 posterior spinal fusion L2-3 L3-4. #3 placement of posterior segmental instrumentation L2-3 L3-4. #4 interbody fusion L2-3 L3-4. #5 placed a peek cage 11 x 26 mm L2-3 L3-4. #6 placement of locally harvested morcellized autograft in the posterior lateral gutters. #7 placement of infuse collagen sponge combined with mesh graft in the posterolateral gutters and ostial amp bone graft in the interbody spaces. Pending Studies Studies pending at discharge: no Medical Emergencies . Who to Call and When: Medical Emergencies: If at any time you feel your situation is an emergency, please call 911 immediately. . Non-Emergent Contact Non-Emergency issues call your: Primary Care Provider . "Provider Documentation" section prepared by Grayson Faith. .
[2017-12-02] MEDS: KETOROLAC TROMETHAMINE 30 MG/ML VIAL IV PRN (16:56)
[2017-12-02] MEDS: DOCUSATE SODIUM/SENNA 50/8.6MG TAB PO SCH (21:00)
[2017-12-02] MEDS: HEPARIN SOD 5000 UNIT/0.5 ML CARP SQ SCH (22:06)
[2017-12-02] MEDS: CLONIDINE HCL 0.3 MG TAB PO SCH (22:08)
[2017-12-03] VITALS (7 sets, daily range): BP systolic 93–108; BP diastolic 58–64; PULSE 82–97; TEMP 36.6–38.1; O2SAT 97–99
[2017-12-03] MEDS: OXYCODONE HCL IR 5 MG TAB (IMMEDIATE RELEASE) PO PRN ×3 (05:22→18:39)
[2017-12-03] MEDS: HEPARIN SOD 5000 UNIT/0.5 ML CARP SQ SCH (05:24)
[2017-12-03] MEDS ORDERED: POLYETHYLENE (MIRALAX) 17 GM PACK PO SCH (06:00)
[2017-12-03] MEDS: KETOROLAC TROMETHAMINE 30 MG/ML VIAL IV PRN ×3 (07:27→22:56)
[2017-12-03] MEDS: GABAPENTIN 300 MG CAP PO SCH ×4 (07:29→21:37)
[2017-12-03] MEDS: FLUOXETINE HCL 20 MG CAP PO SCH (07:30)
[2017-12-03] MEDS: TOPIRAMATE 50 MG TAB PO SCH ×2 (07:30→21:37)
[2017-12-03] MEDS ORDERED: NURSING VERBAL MED ORDER ONE (08:15)
[2017-12-03 09:40] LABS: HEMATOCRIT 34.7 % (37-47); HEMOGLOBIN 11.3 g/dL (12.0-16.0); MEAN CELL VOLUME 96.4 fL (80-100); MEAN CORPUSCULAR HEMOGLOBIN 31.4 pg (25-34); MEAN CORPUSCULAR HGB CONC 32.6 g/dl (32-36); MEAN PLATELET VOLUME 8.4 fL (7.4-10.4); PLATELET COUNT 248 K/uL (130-400); RED CELL DISTRIBUTION WIDTH CV 14.4 % (11.5-14.5); RED CELL DISTRIBUTION WIDTH SD 51.4 fL (36.4-46.3); WHITE BLOOD COUNT 13.85 K/uL (4.8-10.8)
--- NOTE | 2017-12-03 11:32 | Progress Note ---
Progress Note Date of Service Dec 03, 2017. Progress Note Patient is postop day #2. Her back pain is controlled. Her leg symptoms markedly improved. On exam she is sitting up in bed has good strength testing. Assessment status post multilevel lumbar decompression and fusion per plan at this time will continue physical therapy and anticipate discharge home tomorrow.
--- NOTE | 2017-12-03 11:47 | Hospitalist Progress Note ---
Hospitalist Progress Note Date of Service Dec 03, 2017. Subjective Pt evaluation today including: conversation w/ patient, conversation w/ family (mother at bedside ), physical exam, lab review, review of studies, conversation w/ it consultant (Dr. Faith), review of inpatient medication list Voiding: no voiding problems Patient sitting up in bed. Feeling well this AM. Pain is well controlled, 0/10. No more anxiousness. Slept well overnight. Joseph removed, urinating without issues. +BM today. Eating and drinking OK. Continues to do well with physical therapy. Patient denies any fever, chills, sweats, lightheadedness, dizziness, vision changes, CP, palpitations, edema, SOB, wheezing, cough, abdominal pain, nausea, vomiting, diarrhea, urinary symptoms, melena, numbness/tingling, weakness, muscle/joint pain, anxiety/depression, active bleeding, or new skin discoloration/changes. Medications Current Inpatient Medications Medications (Trade) Dose Ordered Sig/[place] Route Start Time Stop Time Status Last Admin Dose Admin Hydromorphone HCl (Dilaudid Inj) 1 mg Q3H PRN IV 11/28/17 23:30 12/12/17 23:29 12/01/17 08:04 1 MG Polyethylene (Miralax Powder Packet) 17 gm DAILY PRN PO 11/28/17 23:30 12/28/17 23:29 Clonidine HCl (Catapres Tab) 0.3 mg HS PO 11/29/17 21:00 12/29/17 20:59 12/02/17 22:08 0.3 MG Fluoxetine HCl (Prozac Cap) 20 mg DAILY PO 11/29/17 09:00 12/29/17 08:59 12/03/17 07:30 20 MG Gabapentin (Neurontin Cap) 300 mg QID PO 11/29/17 09:00 12/29/17 08:59 12/03/17 07:29 300 MG Topiramate (Topamax Tab) 50 mg BID PO 11/29/17 09:00 12/29/17 08:59 12/03/17 07:30 50 MG Acetaminophen/ Hydrocodone Bitart ([place] 7.5/325 Tab) 2 tab Q6 PRN PO 11/28/17 23:55 12/28/17 23:44 11/30/17 09:38 2 TAB Miscellaneous (Iv Fluids Completed) 1 ea PRN PRN N/A 11/29/17 00:30 11/29/18 00:29 Ondansetron HCl (Zofran Inj) 4 mg ONE PRN IV 12/01/17 10:30 Promethazine HCl 6.25 mg/Sodium Chloride 50.25 ml @ 202 mls/hr ONE PRN IV 12/01/17 10:30 Promethazine HCl 12.5 mg/Sodium Chloride 50.5 ml @ 202 mls/hr Q6H PRN IV 12/01/17 12:15 12/31/17 12:14 Ondansetron HCl (Zofran Inj) 4 mg Q6H PRN IV 12/01/17 12:15 12/31/17 12:14 Metoclopramide HCl (Reglan Inj) 10 mg Q6H PRN IV 12/01/17 12:15 12/31/17 12:14 Lorazepam (Ativan Tab) 0.5 mg Q8H PRN PO 12/01/17 12:15 12/31/17 12:14 Lorazepam 0.5 mg/ Syringe 0.25 ml @ 1 mls/min Q8H PRN IV 12/01/17 12:15 12/31/17 12:14 12/01/17 21:44 1 MLS/MIN Pneumococcal Polysaccharide Vaccine 1 ea PRN PRN N/A 12/01/17 12:15 12/31/17 12:14 Influenza Virus Vacc Triv Types A&B 1 ea PRN PRN N/A 12/01/17 12:15 12/31/17 12:14 Bisacodyl (Dulcolax Supp) 10 mg DAILY PRN [place] 12/01/17 12:15 12/31/17 12:14 Magnesium Hydroxide (Milk Of Magnesia Susp) 30 ml DAILY PRN PO 12/01/17 12:15 12/31/17 12:14 Hydromorphone HCl (Dilaudid Inj) 0.5-1mg prn moder... Q3H PRN IV 12/02/17 06:00 12/16/17 05:59 Oxycodone HCl (Roxicodone Immediate Rel Tab) 5-10mg prn moderate to sev... Q4H PRN PO 3/22/18 06:00 12/16/17 05:59 12/03/17 05:22 10 MG Acetaminophen (Tylenol Tab) 1,000 mg Q8H PRN PO 12/01/17 12:15 12/31/17 12:14 Acetaminophen 100 ml @ 400 mls/hr Q8H PRN IV 12/01/17 12:15 12/31/17 12:14 Naloxone HCl (Narcan Inj) 0.1 mg Q5M PRN IV 12/01/17 12:15 12/31/17 12:14 Senna/Docusate Sodium (Senokot S Tab) 2 tab HS PO 12/01/17 21:00 12/31/17 20:59 12/01/17 21:12 2 TAB Sodium Biphosphate/ Sodium Phosphate (Fleet Enema) 132 ml ONE PRN [place] 12/01/17 12:15 12/31/17 12:14 Hydroxyzine HCl (Vistaril Tab) 25 mg Q8H PRN PO 12/01/17 12:15 12/31/17 12:14 12/02/17 10:53 25 MG Al Hydroxide/Mg Hydroxide (Maalox Susp) 30 ml Q6H PRN PO 12/01/17 12:15 12/31/17 12:14 Famotidine (Pepcid Tab) 20 mg Q12 PRN PO 12/01/17 12:15 12/31/17 12:14 Diphenhydramine HCl (Benadryl Cap) 25 mg Q6H PRN PO 12/01/17 12:15 12/31/17 12:14 Ketorolac Tromethamine (Toradol Inj) 30 mg Q6H PRN IV 12/02/17 14:00 12/07/17 13:59 12/03/17 07:27 30 MG Heparin Sodium (Porcine) (Heparin Sq 5000 Unit/0.5ml) 5,000 unit Q8 SQ 12/02/17 22:00 01/01/18 21:59 12/03/17 05:24 5,000 UNIT Objective Vital Signs Date Time Temp Pulse Resp B/P (MAP) Pulse Ox O2 Delivery O2 Flow Rate FiO2 12/03/17 07:20 Room Air 12/03/17 06:39 37.1 97 20 94/62 (73) 97 Room Air 3/23/18 05:30 102/62 (75) 12/03/17 00:26 93/62 (72) 12/02/17 23:10 Room Air 12/02/17 23:04 37.2 99 17 88/51 (63) 96 Room Air 88/59 (69) 12/02/17 16:00 94 Room Air 12/02/17 15:31 37.6 108 17 119/77 (91) 94 Room Air 12/02/17 12:36 37.1 111 19 104/73 (83) 97 Room Air Physical Exam General Appearance: no apparent distress Eyes: normal inspection, PERRL ENT: hearing grossly normal Neck: supple Respiratory/Chest: lungs clear, no respiratory distress, no accessory muscle use Cardiovascular: regular rate, rhythm Abdomen: normal bowel sounds, non tender, soft Extremities: no pedal edema, no calf tenderness, + pertinent finding (back incision site C/D/I; SUMAN drain w/ serosanguinous output ) Neurologic/Psychiatric: alert, normal mood/affect, oriented x 3 Skin: normal color, warm/dry, no rash Laboratory Results Last 24 Hours Test 12/03/17 09:27 White Blood Count 13.85 K/uL Red Blood Count 3.60 M/uL Hemoglobin 11.3 g/dL Hematocrit 34.7 % Mean Corpuscular Volume 96.4 fL Mean Corpuscular Hemoglobin 31.4 pg Mean Corpuscular Hemoglobin Concent 32.6 g/dl RDW Standard Deviation 51.4 fL RDW Coefficient of Variation 14.4 % Platelet Count 248 K/uL Mean Platelet Volume 8.4 fL Assessment and Plan 57 y/o F Hx HTN, anxiety/depression, migraines, chronic lower back pain. The pt presents with worsening lower back pain over the course of a week. She cannot currently ambulate due to severe pain with weight bearing and movement. She denies LE numbness or incontinence. A lumbar MRI was obtained showing L2-L3 , circumferential disc bulge with right paracentral/right lateral recess disc extrusion. Lower back pain and gait difficulty s/p lumbar surgery by Dr. Faith on 12/01: - Surgical management, pain management, PT/OT, and DVT prophylaxis as per orthopedics - Bowel regimen ordered - Encourage incentive spirometer - Gabapentin 300 mg QID - Follow postop CBC: Leukocytosis- IMPROVING, likely secondary from postop response- no s/s of infection, continue to monitor Acute blood loss anemia in postop setting- STABLE: - Hgb 11.3 today from 15.2 at admission - Follow H&H and transfuse PRN for hgb < 7.0-8.0 HTN- STABLE: Continue Clonidine 0.3 mg HS Anxiety, depression- STABLE: Continue Fluoxetine, Lorazepam BID PRN, Vistaril PRN Migraines: Continue Topamax 50 mg BID GI prophylaxis: Pepcid BID PRN DVT prophylaxis: As per orthopedics- discussed w/ Dr. Faith today, hold on anticoagulation at this time Code status: LEVEL I, FULL Dispo: From home, lives w/ - PT/OT and CM consulted- PT recommending home w/ [facility]- likely discharge tomorrow
[2017-12-03] MEDS: CLONIDINE HCL 0.3 MG TAB PO SCH (21:36)
[2017-12-03] MEDS: DOCUSATE SODIUM/SENNA 50/8.6MG TAB PO SCH (21:37)
[2017-12-04] MEDS: OXYCODONE HCL IR 5 MG TAB (IMMEDIATE RELEASE) PO PRN ×2 (06:49→10:48)
[2017-12-04 07:15] LABS: HEMATOCRIT 32.4 % (37-47); HEMOGLOBIN 10.5 g/dL (12.0-16.0); MEAN CELL VOLUME 96.1 fL (80-100); MEAN CORPUSCULAR HEMOGLOBIN 31.2 pg (25-34); MEAN CORPUSCULAR HGB CONC 32.4 g/dl (32-36); MEAN PLATELET VOLUME 8.3 fL (7.4-10.4); PLATELET COUNT 221 K/uL (130-400); RED CELL DISTRIBUTION WIDTH CV 14.3 % (11.5-14.5); RED CELL DISTRIBUTION WIDTH SD 50.7 fL (36.4-46.3); WHITE BLOOD COUNT 10.17 K/uL (4.8-10.8)
[2017-12-04 07:37] VITALS: BP 119/70; PULSE 89; TEMP 36.9; O2SAT 97
[2017-12-04] MEDS: TOPIRAMATE 50 MG TAB PO SCH (07:55)
[2017-12-04] MEDS: GABAPENTIN 300 MG CAP PO SCH (07:55)
[2017-12-04] MEDS: FLUOXETINE HCL 20 MG CAP PO SCH (07:56)
--- NOTE | 2017-12-04 10:13 | Discharge Summary ---
Orthopedic Discharge Summary Admission Date/Reason Nov 30, 2017 at 14:26 Gait Difficulty. Discharge Date/Disposition Dec 04, 2017 Home Diagnosis Principal Diagnosis: Lumbar spinal stenosis Admission Physical Exam As per Admitting History & Physical. Hospital Course Patient underwent lumbar decompression and fusion tolerated this well was taken to the orthopedic floor postoperatively. Postop day #1 her leg symptoms were markedly improved back pain still limiting. She continue with physical therapy through postop day #2 postop day #3 she was markedly improved SUMAN drain decreased appropriately substernally discharged home. Discharge orders and instructions found in the chart for further review. Discharge Instructions Please refer to the electronic Patient Visit Report (Discharge Instructions) for additional information.
[2017-12-04 11:00] VITALS: BP 119/70; PULSE 89; TEMP 36.9; O2SAT 97
--- NOTE | 2017-12-04 22:25 | Discharge Summary ---
Discharge Summary Date of Service Dec 04, 2017. Discharge Summary Admission Date: Nov 30, 2017 at 14:26 Discharge Date: Dec 04, 2017 Discharge Disposition: Home Principal Diagnosis: Lumbar spinal stenosis and disc herniation Problems/Secondary Diagnoses: Ambulatory dysfunction HTN Acute blood loss anemia from surgery Anxiety / Depression Migraine headaches Procedures: 1. Lumbar decompression medial facetectomy foraminotomy L2-3 L3-4. #2 posterior spinal fusion L2-3 L3-4. #3 placement of posterior segmental instrumentation L2-3 L3-4. #4 interbody fusion L2-3 L3-4. #5 placed a peek cage 11 x 26 mm L2-3 L3-4. #6 placement of locally harvested morcellized autograft in the posterior lateral gutters. #7 placement of infuse collagen sponge combined with mesh graft in the posterolateral gutters and ostial amp bone graft in the interbody spaces. Consultations: Orthopedic surgery, spine surgery Medication Reconciliation New Medications: Oxycodone HCl (Oxycodone HCl) 5 Mg Tab 5-10 MG PO Q4H PRN for Moderate - severe pain for 30 Days, #60 TAB Continued Medications: Calcium & Phosphorus W/ Vitami (Calcium) 1 Tab Tab 1 TAB PO DAILY Clonidine HCl (Clonidine HCl) 0.3 Mg Tab 0.3 MG PO HS Ergocalciferol (Vitamin D 83352 Unit) 50,000 Unit Cap 14050 UNIT PO WK, CAP TAKES ON WEDNESDAYS. Fluoxetine (Prozac) 20 Mg Cap 20 MG PO DAILY, CAP Gabapentin (Neurontin) 300 Mg Cap 300 MG PO QID, CAP Hydrocodone-Acetaminophen (Hydrocodone Bitartrate/Ac) 1 Tab Tab 1-2 TABS PO Q4 PRN for Pain Lorazepam (Ativan) 1 Mg Tab 1 MG PO BID PRN for Anxiety, TAB Prednisone Tab (Prednisone) 10 Mg Tab 10 MG PO DAILY, TAB STARTED 11/24/17 FOR 14 DAYS Topiramate (Topamax) 50 Mg Tab 50 MG PO BID, TAB [Fentraphen] () 20 MG PO DAILY Discharge Exam Patient feeling well, no new issues, anxious to go home and recover. Cleared for d/c by Dr. Faith, instructions provided by him. Review of Systems: Constitutional: No fever, No chills, No sweats, No weight loss, No weakness , No fatigue, No problem reported Eyes: No worsening of vision, No eye pain, No redness, No discharge, No diplopia, No problem reported ENT: No hearing loss, No unusual epistaxis, No nasal symptoms, No sore throat, No tinnitus, No dental problems, No trouble swallowing, No problem reported Respiratory: No cough, No sputum, No wheezing, No shortness of breath, No dyspnea on exertion, No dyspnea at rest, No hemoptysis, No problem reported Cardiovascular: No chest pain, No orthopnea, No PND, No edema, No claudication, No palpitations, No problem reported Abdomen: No pain, No nausea, No vomiting, No diarrhea, No constipation, No GI bleeding, No problem reported Musculoskeletal: + joint pain (low back pain, stiffness, improving), + muscle pain (low back), No swelling, No calf pain Genitourinary - Female: No dysuria, No urinary frequency, No urinary urgency , No urinary incontinence, No urinary retention, No hematuria Neurologic: No memory loss, No paralysis, No weakness, No numbness/tingling , No vertigo, No balance problems, No problem reported Psychiatric: No depression symptoms, No anhedonism, No anxiety, No insomnia , No substance abuse, No problem reported Endocrine: No fatigue, No excessive thirst, No excessive urination, No problem reported Hematologic / Lymphatic: No abnormal bleeding/bruising, No clotting problems , No swollen lymph nodes, No night sweats, No problem reported Integumentary: No rash, No itch, No new/changing skin lesions, No color change, No bleeding, No problem reported Physical Exam: General Appearance: WD/WN, no apparent distress Eyes: normal inspection, EOMI, sclerae normal ENT: normal ENT inspection, hearing grossly normal, pharynx normal Neck: supple, no adenopathy, no JVD, trachea midline Respiratory/Chest: chest non-tender, lungs clear, normal breath sounds, no respiratory distress, no accessory muscle use Cardiovascular: regular rate, rhythm, no edema, no gallop, no JVD, no murmur , normal peripheral pulses Abdomen / GI: normal bowel sounds, non tender, soft, no organomegaly Extremities: no calf tenderness, normal capillary refill, no pedal edema, non-tender, pelvis stable, + pertinent finding (lumbar spine, decreased ROM, tender, incision clean and intact) 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 The pt presents with worsening lower back pain over the course of a week. She cannot currently ambulate due to severe pain with weight bearing and movement. She denies LE numbness or incontinence. A lumbar MRI was obtained showing L2-L3, circumferential disc bulge with right paracentral/right lateral recess disc extrusion. Lower back pain and gait difficulty: - MRI: L2-L3, circumferential disc bulge with right paracentral/right lateral recess disc extrusion, severe facet arthrosis with ligamentum flavum thickening causes severe central canal, severe right lateral recess, severe right foraminal and mild left foraminal stenosis. s/p decompression, facetectomy, posterior spina fusion, interbody cage pain controlled, ambulating well with therapy d/c to home with therapy, Percocet provided for pain relief activity and lifting instructions provided by Dr. Faith will follow up with Dr. Faith in a few weeks HTN- STABLE: Continue Clonidine 0.3 mg HS Anxiety, depression: Continue Fluoxetine, Lorazepam BID PRN Migraines: Continue Topamax 50 mg BID DVT prophylaxis: Heparin SQ TID Code status: LEVEL I, FULL Total Time Spent: Less than 30 minutes This includes examination of the patient, discharge planning, medication reconciliation, and communication with other providers. Discharge Instructions Please refer to the electronic Patient Visit Report (Discharge Instructions) for additional information. Follow-Up Dr. Faith in a few weeks Additional Copies To Grayson Faith D.O.; Paco Mello M.D.
== END 2017-12-04 11:49 | disposition home or self-care (01) | DRG 454 ==
LOC: C.EDB 16:26 → C.MSN 23:40 → EDBEDREQSVC 23:49 → OBSVTOIN 11-30 14:26
PROVIDERS: ADMIT Internal Medicine; ATTEND Internal Medicine
PROC: 0SG10AJ Fusion of 2 or more Lumbar Vertebral Joints with Interbody Fusion Device, Posterior Approach, Anterior Column, Open Approach (ICD-10-PCS; principal; 2017-12-01 10:15)
PROC: 0SG1071 Fusion of 2 or more Lumbar Vertebral Joints with Autologous Tissue Substitute, Posterior Approach, Posterior Column, Open Approach (ICD-10-PCS; principal; 2017-12-01 10:15)
PROC: 0ST20ZZ Resection of Lumbar Vertebral Disc, Open Approach (ICD-10-PCS; principal; 2017-12-01 10:15)
DX: M51.26 Other intervertebral disc displacement, lumbar region (principal); D62 Acute posthemorrhagic anemia; M48.061 Spinal stenosis, lumbar region without neurogenic claudication; F41.9 Anxiety disorder, unspecified; F32.9 Major depressive disorder, single episode, unspecified; G43.909 Migraine, unspecified, not intractable, without status migrainosus; R26.2 Difficulty in walking, not elsewhere classified; I10 Essential (primary) hypertension; E66.3 Overweight; Z51.81 Encounter for therapeutic drug level monitoring; Z79.899 Other long term (current) drug therapy; Z79.52 Long term (current) use of systemic steroids; Z87.440 Personal history of urinary (tract) infections; Z68.29 Body mass index [BMI] 29.0-29.9, adult; Z87.891 Personal history of nicotine dependence; Z83.3 Family history of diabetes mellitus

== ENCOUNTER 2019-11-16 06:47 | Observation (INO) ==
--- NOTE | 2019-10-30 08:25 | PAT Medication Instructions ---
Medication Instructions Date of Service October 30, 2019 Home Medications calcium carbonate [Calcium 500] 500 mg PO HS cholecalciferol (vitamin D3) [Vitamin D3] 5,000 unit PO HS clonidine HCl 0.1 mg PO HS cyclobenzaprine 10 mg PO TID PRN fluoxetine [Prozac] 20 mg PO HS hydrocodone-acetaminophen 1 tab PO QID PRN lorazepam 1 mg PO TID PRN DO NOT take the morning of surgery cyclobenzaprine 10 mg PO TID PRN Take morning of surgery With a small sip of water, OTHERWISE NOTHING TO EAT OR DRINK AFTER MIDNIGHT: hydrocodone-acetaminophen 1 tab PO QID PRN (okay to take up to 4 hours prior to surgery if needed) lorazepam 1 mg PO TID PRN (if needed) Take evening before surgery calcium carbonate [Calcium 500] 500 mg PO HS cholecalciferol (vitamin D3) [Vitamin D3] 5,000 unit PO HS clonidine HCl 0.1 mg PO HS cyclobenzaprine 10 mg PO TID PRN (if needed) fluoxetine [Prozac] 20 mg PO HS hydrocodone-acetaminophen 1 tab PO QID PRN (if needed) lorazepam 1 mg PO TID PRN (if needed) Other Notes If you have any questions please call us at [phone] or [phone] or [phone] or [phone]
--- NOTE | 2019-10-30 09:27 | Anesthesiology Consultation ---
Date of Service October 30, 2019 Assessment & Plan (1) Encounter for pre-operative examination: Chart Review Chart Review: Acceptable Risk for Surgery (pending surgeon-ordered PCP clearance scheduled 11/02 (Dr. Mello)) and Patient seen in Pre Admission Testing Teaching & Discussion Pre-Anesthesia Teaching/Discussion Notes: Instructed NPO after midnight before surgery,except medications with 15 cc of water. Medication instructions provi ded according to the PAT guidelines. History Surgery Operation Date: 11/16/19 09:45 Proposed Procedures p Right Total Knee Arthroplasty - Vishal Kay MD Height/Weight Height: 5 ft 8.5 in Weight: 88.9 kg Allergies Allergy/AdvReac Type Severity Reaction Status Date / Time No Known Allergies Allergy Unverified 10/30/19 07:08 Medications Home Medications Medication Instructions Recorded Confirmed Last Taken calcium carbonate [Calcium 500] 500 mg PO HS 10/30/19 10/30/19 Unknown cholecalciferol (vitamin D3) 5,000 unit PO HS 10/30/19 10/30/19 Unknown [Vitamin D3] clonidine HCl 0.1 mg PO HS 10/30/19 10/30/19 Unknown cyclobenzaprine 10 mg PO TID PRN 10/30/19 10/30/19 Unknown fluoxetine [Prozac] 20 mg PO HS 10/30/19 10/30/19 Unknown hydrocodone-acetaminophen 1 tab PO QID PRN 10/30/19 10/30/19 Unknown lorazepam 1 mg PO TID PRN 10/30/19 10/30/19 Unknown Past Medical History Medical History Anxiety Chronic back pain Degenerative disc disease Depression GERD (gastroesophageal reflux disease) diet related Hypertension Osteoarthritis Tachycardia hx borderline tachycardia (HR low 100's per patient)/sinus tachycardia at 104bpm per 03/2019 EKG/PCP monitoring/asymptomatic Exercise / Class Metabolic Activity III < 4 Walking/Shop/Light housework Past Family History Family History Mother FHx: breast cancer FHx: uterine cancer Other Adopted Past Surgical History Surgical History H/O vaginal hysterectomy with bilateral salpingoopherectomy History of colonoscopy History of endoscopic sinus surgery History of esophagogastroduodenoscopy (EGD) History of tonsillectomy S/P foot surgery, left with hardware S/P hardware removal left foot S/P lumbar fusion L2-L4 decompression with fusion: 12/01/17: Grade view 1, MAC#3, ETT 7.0 at [facility] Past Anesthesia History No Hx of Anesthesia Complications and No Family Hx of Anesthesia Complications (Adopted- limited family hx available) History of PONV No Hx of PONV and No Hx of Motion Sickness Social History Smoking Status: Former smoker tobacco type: cigarettes Do You Dip or Chew Tobacco: No Smoking End Date: Quit 1990 Hx Alcohol Use: No Hx Substance Use: No substance use type: does not use Review of Systems Patient denies chest pain, shortness of breath, dyspnea on exertion, joint pain, reflux, cough, wheezing, palpitations. Physical Exam Vital Signs KENN 126/87 P 101 TEMP 98.4 SP02 99%RA RESP 16 PHYSICAL Full neck and c-spine range of motion. Full TMJ range of motion. TMD 4 finger breaths Mallampati Score 1 Dentition: missing molars Lungs: clear throughout to auscultation Cardiac: regular rate and rhythm, no murmurs noted Spine: normal Carotid arteries: negative bruit Extremities: no edema Testing Laboratory Results 10/30/19 09:55 10/30/19 09:55 PT 10.4 Seconds (9.0-12.0) 10/30/19 09:55 INR 1.0 (0.9-1.1) 10/30/19 09:55 APTT 25.0 Seconds (21.0-31.0) 10/30/19 09:55 Hemoglobin A1c 5.7 % (4.5-5.6) H 10/30/19 09:55 Urine Color Yellow 10/30/19 09:55 Urine Appearance Clear (Clear) 10/30/19 09:55 Urine pH 6.5 (4.5-7.5) 10/30/19 09:55 Ur Specific [place] 1.005 (1.000-1.030) 10/30/19 09:55 Urine Protein Negative (Negative) 10/30/19 09:55 Urine Glucose (UA) Negative (Negative) 10/30/19 09:55 Urine Ketones Negative (Negative) 10/30/19 09:55 Urine Nitrite Negative (Negative) 10/30/19 09:55 Ur Leukocyte Esterase Trace (Negative) H 10/30/19 09:55 Urine RBC 0-4 /hpf (0-4) 10/30/19 09:55 Urine WBC 0-5 /hpf (0-5) 10/30/19 09:55 Ur Epithelial Cells 0-5 /lpf (0-5) 10/30/19 09:55 Blood Type O Positive 10/30/19 09:55 Antibody Screen NEGATIVE 10/30/19 09:55 Electrocardiogram Date: 03/14/19 ST at 104bpm. Possible LAE. Low voltage QRS. No significant change compared to 11/30/17 EKG per cardiology. Chest X-Ray Date: 10/30/19 Findings: + NAD
--- NOTE | 2019-10-30 10:21 | XRay Report ---
XR chest Pre-admission PA/Lat CLINICAL HISTORY: Preoperative chest COMPARISON STUDY: November 30, 2017 FINDINGS: The cardiac and mediastinal contours are normal. There is no evidence of focal pulmonary co nsolidation. There is no evidence of failure. No pleural effusions are visualized.[ IMPRESSION: No active disease in the chest. ACT 112: Negative or not required by law. Electronically signed by: Arnulfo Herman M.D. 10/30/2019 10:20 AM
[2019-10-30 10:38] LABS: Basophils # (auto) 0.03 K/uL (0-0.2); Basophils % (auto) 0.3 %; Eosinophils % (auto) 1.1 %; Hematocrit (blood only) 42.5 % (37-47); Hemoglobin 14.3 g/dL (12.0-16.0); Immature Granulocytes # (auto) 0.04 K/uL (0.00-0.02); Immature Granulocytes % (auto) 0.4 %; Lymphocytes # (auto) 3.65 K/uL (1.2-3.4); Lymphocytes % (auto) 40.9 %; Mean Corpuscular Hemoglobin 31.7 pg (25-34); Mean Corpuscular Hgb Conc 33.6 g/dL (32-36); Mean Corpuscular Volume 94.2 fL (80-100); Mean Platelet Volume 8.9 fL (7.4-10.4); Monocytes # (auto) 0.55 K/uL (0.11-0.59); Monocytes % (auto) 6.2 %; Neutrophils # (auto) 4.56 K/uL (1.4-6.5); Neutrophils % (auto) 51.1 %; Platelet Count 363 K/uL (130-400); RDW Standard Deviation 44.8 fL (36.4-46.3); Red Blood Count 4.51 M/uL (4.2-5.4); White Blood Count 8.93 K/uL (4.8-10.8)
[2019-10-30 10:42] LABS: Appearance Urine Clear (Clear); Bilirubin Urine Negative (Negative); Blood Urine Negative (Negative); Color Urine Yellow; Glucose Urine UA Negative (Negative); Ketones Urine Negative (Negative); Leukocyte Esterase Urine Trace (Negative); Nitrite Urine Negative (Negative); Protein Urine Negative (Negative); Specific Gravity Urine 1.005 (1.000-1.030); Urobilinogen Urine Negative (Negative); pH Urine 6.5 (4.5-7.5)
[2019-10-30 10:48] LABS: Partial Thromboplastin Ratio 0.9; Prothrombin Time 10.4 Seconds (9.0-12.0)
[2019-10-30 11:03] LABS: Estimated Average Glucose 117 mg/dl; Hemoglobin A1C 5.7 % (4.5-5.6)
[2019-10-30 11:17] LABS: Epithelial Cell Urine 0-5 /lpf (0-5); RBC Urine 0-4 /hpf (0-4); WBC Urine 0-5 /hpf (0-5)
[2019-10-30 11:18] LABS: Bacteria Urine Negative (Negative); Hyaline Casts Urine 0-5 /lpf (0-5)
[2019-10-30 11:31] LABS: Albumin Level 3.6 gm/dl (3.4-5.0); BUN Creatinine Ratio 17.8 (10-20); Calcium 9.4 mg/dl (8.5-10.1); Creatinine Clr Calc Pharmacy 105.4 ml/min; Est GFR (African American) 110.5; Est GFR (Non-African American) 95.3; Potassium 3.2 mmol/L (3.5-5.1)
--- NOTE | 2019-11-09 08:11 | History & Physical Report ---
Date of Service November 09, 2019 Assessment & Plan (1) Primary osteoarthritis of right knee: Treatment options were discussed with the patient. She has failed conservative measures as above. Risks, benefits and alternatives to surgery including but not limited to infection, DVT, pain, stiffness, need for revision surgery, damage to blood vessels, damage to nerves, PE, , were discussed with the patient and they wish to proceed. Plan will be for right total knee arthroplasty on 11/16/19 at [facility]. Will plan on aspirin 81mg BID x 30 days post operatively. She will plan on outpatient PT upon discharge from the hospital. All questions were answered. She will follow up post operatively. History of Present Illness Chief Complaint: Right knee pain Primary Care Provider: Paco Mello MD Patient is a 59 year old female with PMHx significant for HTN, GERD, anxiety, OA who presents with ongoing right knee pain. She has had previous arthroscopy. She has failed conservative measures including cortisone injections, therapy, viscoelastic injections, and antiinflammatories. Pain is affecting her ability to carry out her normal daily activities. She would like to proceed with right knee replacement. Patient denies headaches, sweats, fevers, chills, double vision, blurred vision, cough, sore throat, dysphagia, chest pain, sob, whee zing, n/v/d/c, numbness, tingling, fatigue, urinary symptoms, mood disorders. ROS positive for right knee pain and stiffness. Allergies Allergy/AdvReac Type Severity Reaction Status Date / Time No Known Allergies Allergy Unverified 10/30/19 07:08 Home Medications Home Medications Medication Instructions Recorded Confirmed Type calcium carbonate [Calcium 500] 500 mg PO HS 10/30/19 10/30/19 History cholecalciferol (vitamin D3) 5,000 unit PO HS 10/30/19 10/30/19 History [Vitamin D3] clonidine HCl 0.1 mg PO HS 10/30/19 10/30/19 History cyclobenzaprine 10 mg PO TID PRN 10/30/19 10/30/19 History fluoxetine [Prozac] 20 mg PO HS 10/30/19 10/30/19 History hydrocodone-acetaminophen 1 tab PO QID PRN 10/30/19 10/30/19 History lorazepam 1 mg PO TID PRN 10/30/19 10/30/19 History Past Med/Surg History Medical History Anxiety Chronic back pain Degenerative disc disease Depression GERD (gastroesophageal reflux disease) diet related Hypertension Osteoarthritis Tachycardia hx borderline tachycardia (HR low 100's per patient)/sinus tachycardia at 104bpm per 03/2019 EKG/PCP monitoring/asymptomatic Surgical History H/O vaginal hysterectomy with bilateral salpingoopherectomy History of colonoscopy History of endoscopic sinus surgery History of esophagogastroduodenoscopy (EGD) History of tonsillectomy S/P foot surgery, left with hardware S/P hardware removal left foot S/P lumbar fusion L2-L4 decompression with fusion: 12/01/17: Grade view 1, MAC#3, ETT 7.0 at [facility] Family History Mother FHx: breast cancer FHx: uterine cancer Other Adopted Social History Preferred Language: Cambodian Communication Ability: Effective Cash Management Coordinator Required: No Beliefs That Will Affect Care: None Current Living Situation: Spouse and Family Other Information That Helps Us Care for You: No Feels Safe at Home: Yes Safety Concerns: Feels Safe At This Time Smoking Status: Former smoker Tobacco Type: cigarettes ; Do You Dip or Chew Tobacco: No ; Smoking End Date: Quit 1990 ; Second Hand Exposure: No ; Tobacco Cessation Education Requested by Patient: No Hx Alcohol Use: No Hx Substance Use: No Review of Systems All systems reviewed & are unremarkable except as noted in HPI & below Physical Exam Constitutional: well developed and well nourished; no acute distress Eyes: PERRL, conjunctivae normal, anicteric sclerae ENMT: external ear and nose normal, oropharynx normal Neck: trachea midline, no thyromegaly Respiratory: normal respiratory effort, lungs clear to auscultation Cardiovascular: RRR, no murmur, no edema Musculoskeletal: Right knee: Tenderness lateral joint line, mild effusion. Stable to valgus and varus stress. ROM 0-130. Positive Angely's. Skin: no rashes, warm and dry Neurologic: patellar DTR's 2+ bilat, sensation intact Psychiatric: A+Ox3, euthymic affect Results & Data Laboratory Results Lab Results 10/30/19 10/30/19 10/30/19 Range/Units 09:55 09:55 09:55 WBC 8.93 (4.8-10.8) K/uL RBC 4.51 (4.2-5.4) M/uL Hgb 14.3 (12.0-16.0) g/dL Hct 42.5 (37-47) % MCV 94.2 (80-100) fL MCH 31.7 (25-34) pg MCHC 33.6 (32-36) g/dL RDW Std Deviation 44.8 (36.4-46.3) fL RDW Coeff of Bruno 13.0 (11.5-14.5) % Plt Count 363 (130-400) K/uL MPV 8.9 (7.4-10.4) fL Immature Gran % (Auto) 0.4 % Neut % (Auto) 51.1 % Lymph % (Auto) 40.9 % [place] % (Auto) 6.2 % Eos % (Auto) 1.1 % Baso % (Auto) 0.3 % Immature Gran # (Auto) 0.04 H (0.00-0.02) K/uL Neut # (Auto) 4.56 (1.4-6.5) K/uL Lymph # (Auto) 3.65 H (1.2-3.4) K/uL [place] # (Auto) 0.55 (0.11-0.59) K/uL Eos # (Auto) 0.10 (0-0.5) K/uL Baso # (Auto) 0.03 (0-0.2) K/uL PT 10.4 (9.0-12.0) Seconds INR 1.0 (0.9-1.1) APTT 25.0 (21.0-31.0) Seconds PTT Ratio 0.9 Sodium (136-145) mmol/L Potassium (3.5-5.1) mmol/L Chloride (98-107) mmol/L Carbon Dioxide (21-32) mmol/L Anion Gap (3-11) BUN (7-18) mg/dl Creatinine (0.6-1.2) mg/dl Est Cr Clr Drug Dosing ml/min Est GFR ( Amer) Est GFR (Non-Af Amer) BUN/Creatinine Ratio (10-20) Glucose (70-99) mg/dl Estimat Average Glucose mg/dl Hemoglobin A1c (4.5-5.6) % Calcium (8.5-10.1) mg/dl Albumin (3.4-5.0) gm/dl Urine Color Urine Appearance (Clear) Urine pH (4.5-7.5) Ur Specific [place] (1.000-1.030) Urine Protein (Negative) Urine Glucose (UA) (Negative) Urine Ketones (Negative) Urine Blood (Negative) Urine Nitrite (Negative) Urine Bilirubin (Negative) Urine Urobilinogen (Negative) Ur Leukocyte Esterase (Negative) Urine RBC (0-4) /hpf Urine WBC (0-5) /hpf Ur Epithelial Cells (0-5) /lpf Urine Bacteria (Negative) Hyaline Casts (0-5) /lpf Blood Type O Positive Antibody Screen NEGATIVE 10/30/19 10/30/19 10/30/19 Range/Units 09:55 09:55 09:55 WBC (4.8-10.8) K/uL RBC (4.2-5.4) M/uL Hgb (12.0-16.0) g/dL Hct (37-47) % MCV (80-100) fL MCH (25-34) pg MCHC (32-36) g/dL RDW Std Deviation (36.4-46.3) fL RDW Coeff of Bruno (11.5-14.5) % Plt Count (130-400) K/uL MPV (7.4-10.4) fL Immature Gran % (Auto) % Neut % (Auto) % Lymph % (Auto) % [place] % (Auto) % Eos % (Auto) % Baso % (Auto) % Immature Gran # (Auto) (0.00-0.02) K/uL Neut # (Auto) (1.4-6.5) K/uL Lymph # (Auto) (1.2-3.4) K/uL [place] # (Auto) (0.11-0.59) K/uL Eos # (Auto) (0-0.5) K/uL Baso # (Auto) (0-0.2) K/uL PT (9.0-12.0) Seconds INR (0.9-1.1) APTT (21.0-31.0) Seconds PTT Ratio Sodium 140 (136-145) mmol/L Potassium 3.2 L (3.5-5.1) mmol/L Chloride 108 H (98-107) mmol/L Carbon Dioxide 25 (21-32) mmol/L Anion Gap 7.0 (3-11) BUN 12 (7-18) mg/dl Creatinine 0.66 (0.6-1.2) mg/dl Est Cr Clr Drug Dosing 105.4 ml/min Est GFR ( Amer) 110.5 Est GFR (Non-Af Amer) 95.3 BUN/Creatinine Ratio 17.8 (10-20) Glucose 104 H (70-99) mg/dl Estimat Average Glucose 117 mg/dl Hemoglobin A1c 5.7 H (4.5-5.6) % Calcium 9.4 (8.5-10.1) mg/dl Albumin 3.6 (3.4-5.0) gm/dl Urine Color Yellow Urine Appearance Clear (Clear) Urine pH 6.5 (4.5-7.5) Ur Specific [place] 1.005 (1.000-1.030) Urine Protein Negative (Negative) Urine Glucose (UA) Negative (Negative) Urine Ketones Negative (Negative) Urine Blood Negative (Negative) Urine Nitrite Negative (Negative) Urine Bilirubin Negative (Negative) Urine Urobilinogen Negative (Negative) Ur Leukocyte Esterase Trace H (Negative) Urine RBC 0-4 (0-4) /hpf Urine WBC 0-5 (0-5) /hpf Ur Epithelial Cells 0-5 (0-5) /lpf Urine Bacteria Negative (Negative) Hyaline Casts 0-5 (0-5) /lpf Blood Type Antibody Screen Diagnostic Findings Right knee radiographs: bone on bone lateral compartment with osteophyte formation off lateral femoral condyle and lateral tibial plateau
[~2019-11-16 06:47] MED LIST changes: +ACETAMINOPHEN 500 MG TAB PO SCH; -ATV/1 PO; +BUPIVACAINE 0.5 % 5 MG/1 ML PF 10ML VIAL ONE; +CEFAZOLIN 2000MG 2,000 MG/15 ML SYR IV SCH; +CeleBREX 200 MG CAP PO SCH; +FAMOTIDINE 20 MG TAB PO SCH; -FLUO20CA35 PO; +GABAPENTIN 600 MG DOSE PO SCH; -HYDR1TAB96 PO; +LR 500ML BOLUS, THEN 15ML/HR IV SCH; +METOCLOPRAMIDE HCL 10 MG TABLET PO SCH; +ROPIVACAINE 0.5% 5 MG/ML 30 ML VIAL ONE; +dexAMETHasone 4 MG TAB PO SCH
[2019-11-16] MEDS ORDERED: PROPOFOL IV EMULSION 10 MG/ML 20 ML VIAL IV ONE (07:49)
[2019-11-16] MEDS ORDERED: LIDOCAINE HCL 2% 2 ML VIAL/AMP(20MG/ML) INFIL ONE (07:49)
[2019-11-16] MEDS ORDERED: ORTHO JOINT ANESTHETIC ONE (07:49)
[2019-11-16] MEDS ORDERED: ONDANSETRON INJ 2 MG/ML 2 ML VIAL ONE (07:49)
[2019-11-16] MEDS ORDERED: MIDAZOLAM HCL 1 MG/ML 2ML VIAL ONE ×3 (07:50→08:35)
[2019-11-16] MEDS ORDERED: BACITRACIN INJ 50,000 UNIT VIAL ONE (07:50)
[2019-11-16] MEDS ORDERED: fentaNYL citrate 100 MCG/2 ML VIAL ONE (07:50)
[2019-11-16] MEDS ORDERED: TRANEXAMIC ACID / 0.7% NACL 1000MG/100ML BAG IV ONE (07:59)
[2019-11-16] MEDS ORDERED: TRANEXAMIC ACID 1,000 MG **IV Pre-op IV SCH (08:00)
--- NOTE | 2019-11-16 08:05 | History & Physical Bridge Note ---
Date of Service November 16, 2019 History & Physical Bridge Note I have examined the patient, reviewed the History & Physical and in the interval since the performance of the History & Physical I have noted the following changes of clinical significance: no changes noted
--- NOTE | 2019-11-16 08:16 | History & Physical Bridge Note ---
Date of Service November 16, 2019 History & Physical Bridge Note I have examined the patient, reviewed the History & Physical and in the interval since the performance of the History & Physical I have noted the following changes of clinical significance: Patient did not stop taking his Plavix. He took a dose yesterday. He was not told to stop it 5 days prior to surgery. He has stopped it for other procedures in the past. We will cancel for today and reschedule.
[2019-11-16] MEDS ORDERED: TRANEXAMIC ACID 1,000 MG **IV Intra-op IV SCH (09:00)
[2019-11-16] MEDS ORDERED: ATROPINE SULFATE 0.1 MG/ML 10ML SYR IV PRN (09:16)
[2019-11-16] MEDS ORDERED: ePHEDrine sulfate 50 MG/ML AMP IV PRN (09:16)
--- NOTE | 2019-11-16 10:02 | Operative Report ---
Post Operative Report Pre & Post Diagnosis Operation Date: 11/16/19 09:05 Pre-Op Diagnosis: Unilateral Primary Osteoarthrits, Right Knee Post-Op Diagnosis: Unilateral Primary Osteoarthrits, Right Knee I identified the patient and participated in the time-out.: Yes Procedure Operation Date: 11/16/19 09:05 Actual Procedures p Right Total Knee Arthroplasty(Right) - Vishal Kay MD Surgeon Vishal Kay MD Fractionating Still Operator Kolton Sharif PA-C Estimated Blood Loss 20 Findings Consistent with Post-Op Diagnosis Specimens bone and tissue Drains None Anesthesia Type MAC Spinal Regional Complications none Disposition Accompanied Patient To Recovery: No Disposition: Recovery Room Indications The patient is a 59-year-old female [place] arthritic change in the right knee. She is [id number] lateral compartment. She is failed conservative measures including injection, anti-inflammatories and rehab. She wishes to proceed with a right total knee arthroplasty. Description of Procedure Risks benefits and alternatives of surgery including but not limited to infection, DVT, pain, stiffness, need for surgery, damage to blood vessels, damage to nerves or risks of anesthesia were discussed with the patient and they wished to proceed. The patient was identified and the laterality was confirmed and marked. They received a preoperative antibiotic as well as a spinal anesthetic and an abductor canal block. A well-padded tourniquet was applied and then the limb was prepped and draped in standard manner with ChloraPrep. The limb was exsanguinated and the tourniquet was inflated. I made a standard anterior incision. I sharply incised the skin then utilized Bovie electrocautery to achieve hemostasis. I made a medial parapatellar arthrotomy and mobilized the patella laterally. I then excised the anterior horns of the medial and lateral meniscus as well as the infrapatellar fat pad. I elevated a portion of the MCL off of the tibia. I then pinned into place a patient-matched distal femoral cutting guide and made my distal femoral resection. I then pinned into place the 5 in 1 femoral cutting guide. I made my anterior, posterior and chamfer cuts. I then excised the cruciates and the remaining portions of the menisci. I then pinned into place a patient- matched tibial cutting guide and made my tibial resection. I then pinned into place the tibial plate a utilizing alignment cheryl to confirm rotation. I then cut for the post. Utilizing a lamina audio visual specialist and I then removed posterior osteophytes off the femur. I then placed a trial femur into position and cut for the trochlear component. I then sequentially trialed to size the polyethylene until there was good soft t issue balancing and range of motion. I then prepared the patella with a freehand cut utilizing sagittal saw. I sized and drilled for the patella. There was good tracking to the patella no lateral release was needed. All the trial components were removed. The deep tissues were anesthetized with an ortho mix solution. Then with Simplex HV with gentamicin cement, I cemented my definitive components. Definitive components, [facility] 2: Femur 5 Tibia 4 Poly 13 Patella 29 oval A betadine soak was performed. The arthrotomy was closed with interrupted #1 Vicryl suture subcutaneous tissue was closed with interrupted 2-0 Vicryl suture. The skin was closed with with rosina. An Acticoat and Rosalee dressing were placed. Sterile dressings were applied. All needle and sponge counts were correct at the end of the procedure patient was transferred to the PACU in stable condition without apparent complication. The PA-C was necessary for assistance with procedure for assistance in positioning, prepping, draping, retraction and closure. I attest to the content of the Intraoperative Record and any orders documented therein. Any exceptions are noted below.
--- NOTE | 2019-11-16 11:07 | Anesthesiology Progress Note ---
Date of Service November 16, 2019 Anesthesia Post Procedure Vital Signs Vital Signs: Temp Pulse Pulse Resp BP Pulse Ox 11/16/19 10:55 93 H 13 103/73 99 11/16/19 10:45 90 14 106/55 L 100 11/16/19 10:39 36.3 C L 95 H 12 95/62 L 100 11/16/19 07:21 37 C 96 H 20 133/74 97 Pain Intensity Right Knee: Pain Intensity: 6 Transfer of Care Handoff Completed per policy Notes Mental Status: alert / awake / arousable and participated in evaluation Patient Amnestic to Procedure: Yes Nausea / Vomiting: adequately controlled Pain: adequately controlled Airway Patency, RR, SpO2: stable & adequate BP & HR: stable & adequate Hydration State: stable & adequate Neuraxial Anesthesia: was administered and sensory block is resolving Anesthetic Complications: no major complications apparent
--- NOTE | 2019-11-16 11:12 | XRay Report ---
XR knee RT 1 or 2V routine CLINICAL HISTORY: Surgical Post Op COMPARISON: None FINDINGS: Alignment of the total right knee arthroplasty is anatomic. There is no periprosthetic fra cture or unexpected radiopaque foreign body. There are skin rosina. IMPRESSION: Expected findings following total right knee arthroplasty. ACT 112: Negative or not required by law. Results electronically sent 11/16/2019 11:11 AM to: Kolton Sharif Electronically signed by: Quentin Lyn M.D. 11/16/2019 11:11 AM
[2019-11-16] MEDS ORDERED: bisacodyL 10 MG SUPP PR PRN (12:53)
[2019-11-16] MEDS ORDERED: METOCLOPRAMIDE HCL INJ 5 MG/ML 2 ML VIAL IV PRN (12:53)
[2019-11-16] MEDS ORDERED: ONDANSETRON INJ 2 MG/ML 2 ML VIAL IV PRN (12:53)
[2019-11-16] MEDS ORDERED: HYDROmorphone INJ 0.5 MG/0.5 ML SYR IV PRN (12:54)
[2019-11-16] MEDS ORDERED: NALOXONE HCL 0.4 MG/1 ML VIAL/CARP IV PRN (12:54)
[2019-11-16] MEDS ORDERED: MAGNESIUM HYDROXIDE SUSP 30 ML UDC PO PRN (12:57)
[2019-11-16] MEDS ORDERED: CYCLOBENZAPRINE HCL 10 MG TAB PO PRN (13:03)
[2019-11-16] MEDS ORDERED: LORazepam 1 MG TAB PO PRN (13:04)
[2019-11-16] MEDS: SODIUM CHLORIDE 0.9% 1000ML 1,000 ML IV SCH (13:16)
[2019-11-16] MEDS: ACETAMINOPHEN 500 MG TAB PO SCH ×2 (14:27→21:02)
[2019-11-16] MEDS: CEFAZOLIN 2000MG 2,000 MG/15 ML SYR IV SCH (17:31)
[2019-11-16] MEDS: ASPIRIN 81 MG ECTAB PO SCH (20:53)
[2019-11-16] MEDS: DOCUSATE SODIUM 100 MG CAP PO SCH (20:53)
[2019-11-16] MEDS: CeleBREX 200 MG CAP PO SCH (20:53)
[2019-11-16] MEDS ORDERED: cloNIDine HCL 0.1 MG TAB PO SCH (21:00)
[2019-11-16] MEDS ORDERED: CHOLECALCIFEROL 1,000 UNITS 25 MCG TAB PO SCH (21:00)
[2019-11-16] MEDS ORDERED: FLUOXETINE HCL 20 MG CAP PO SCH (21:00)
[2019-11-16] MEDS ORDERED: CALCIUM CARBONATE 1250MG TAB PO SCH (21:00)
[2019-11-16] MEDS ORDERED: SENNA 8.6 MG TAB PO SCH (21:00)
[2019-11-17] MEDS: CEFAZOLIN 2000MG 2,000 MG/15 ML SYR IV SCH (00:15)
[2019-11-17] MEDS: SODIUM CHLORIDE 0.9% 1000ML 1,000 ML IV SCH (00:23)
[2019-11-17] MEDS: OXYCODONE HCL IR 5 MG TAB (IMMEDIATE RELEASE) PO PRN ×3 (03:33→13:10)
[2019-11-17] MEDS: ACETAMINOPHEN 500 MG TAB PO SCH ×2 (06:19→13:13)
[2019-11-17 06:25] LABS: Hematocrit (blood only) 33.7 % (37-47); Hemoglobin 11.1 g/dL (12.0-16.0); Mean Corpuscular Hgb Conc 32.9 g/dL (32-36); Mean Corpuscular Volume 94.1 fL (80-100); Mean Platelet Volume 8.9 fL (7.4-10.4); Platelet Count 292 K/uL (130-400); RDW Coefficient of Variation 12.7 % (11.5-14.5); RDW Standard Deviation 43.7 fL (36.4-46.3); Red Blood Count 3.58 M/uL (4.2-5.4); White Blood Count 11.89 K/uL (4.8-10.8)
[2019-11-17 06:55] LABS: Calcium 8.9 mg/dl (8.5-10.1); Est GFR (African American) 111.1; Est GFR (Non-African American) 95.8; Potassium 3.9 mmol/L (3.5-5.1)
--- NOTE | 2019-11-17 07:25 | Orthopedic Progress Note ---
Date of Service November 17, 2019 Assessment & Plan (1) Primary osteoarthritis of right knee: POD#1 Right TKA -PT/OT -Pain management -DVT prophylaxis-ASA 81mg BID, TEDs, SCDs -D/C planning-home with OPPT. Discharge likely today as long as PT goes well AM labs-hemoglobin 11.1 this morning, acute blood loss anemia likely due to surgical loss vs dilutional effect Admission and Anticipated Discharge Date Admission Date: November 16, 2019 Subjective Patient resting in bed comfortably. Pain well controlled. No issues overnight. She denies chest pain, sob, dizziness, light headedness, n/v/d. Review of Systems Review of Systems: All systems reviewed & are unremarkable except as noted in HPI & below Physical Exam Physical Exam: Right knee dressing is c/d/i. Rosalee is suctioning. No calf tenderness. Toes are mobile. Good dorsiflexion. Distally n/v status and sensation are intact. Constitutional: well developed and well nourished; no acute distress Results & Data ([facility]) Vital Signs (Past 12 Hours) Vital Signs Temp Pulse Resp BP Pulse Ox 11/17/19 03:30 36.7 C 90 16 126/88 97 11/16/19 23:25 36.5 C 85 16 110/70 94 11/16/19 20:01 36.5 C 95 H 18 125/79 96 Laboratory Results H & H 10/30/19 11/17/19 Range/Units 09:55 05:55 Hgb 14.3 11.1 L (12.0-16.0) g/dL Hct 42.5 33.7 L (37-47) % Coagulation 10/30/19 Range/Units 09:55 INR 1.0 (0.9-1.1)
[2019-11-17] MEDS ORDERED: ROPIVACAINE 0.5% HCL/PF 150 MG, BUPIVACAINE 0.5% MPF 30 ML, EPINEPHrine 30MG/30ML (OR U... INSTIL SCH (08:15)
--- NOTE | 2019-11-17 08:15 | Anesthesiology Progress Note ---
Date of Service November 17, 2019 Anesthesia Post Procedure Vital Signs Vital Signs: Temp Pulse Pulse Resp BP Pulse Ox 11/17/19 07:35 36.6 C 102 H 16 110/73 97 11/17/19 03:30 36.7 C 90 16 126/88 97 11/16/19 23:25 36.5 C 85 16 110/70 94 11/16/19 20:01 36.5 C 95 H 18 125/79 96 11/16/19 15:06 36.6 C 97 H 16 135/84 97 11/16/19 13:35 89 16 128/65 99 11/16/19 12:28 98 H 16 113/72 92 11/16/19 12:05 91 H 16 96/62 L 96 11/16/19 11:41 36.9 C 91 H 15 97/65 L 98 11/16/19 11:20 91 H 13 103/66 92 11/16/19 11:05 36.2 C L 91 H 21 95/66 L 96 11/16/19 10:55 93 H 13 103/73 99 11/16/19 10:45 90 14 106/55 L 100 11/16/19 10:39 36.3 C L 95 H 12 95/62 L 100 Pain Intensity Right Knee: Pain Intensity: 7 Notes Mental Status: alert / awake / arousable and participated in evaluation Patient Amnestic to Procedure: Yes Nausea / Vomiting: adequately controlled Pain: adequately controlled Airway Patency, RR, SpO2: stable & adequate BP & HR: stable & adequate Hydration State: stable & adequate Neuraxial Anesthesia: was administered and sensory block resolved Anesthetic Complications: no major complications apparent and Pt Satisfied with anesthetic care
[2019-11-17] MEDS: ASPIRIN 81 MG ECTAB PO SCH (08:43)
[2019-11-17] MEDS: CeleBREX 200 MG CAP PO SCH (08:44)
[2019-11-17] MEDS: DOCUSATE SODIUM 100 MG CAP PO SCH (08:44)
[2019-11-17] MEDS ORDERED: PANTOprazole 40 MG TAB PO SCH (09:00)
[2019-11-17] MEDS ORDERED: MULTIVITAMIN TAB PO SCH (09:00)
--- NOTE | 2019-11-18 13:46 | Discharge Summary ---
Date of Service November 18, 2019 Admission HPI Per Admitting Provider Patient is a 59 year old female with PMHx significant for HTN, GERD, anxiety, OA who presents with ongoing right knee pain. She has had previous arthroscopy. She has failed conservative measures including cortisone injections, therapy, viscoelastic injections, and antiinflammatories. Pain is affecting her ability to carry out her normal daily activities. She would like to proceed with right knee replacement. Patient denies headaches, sweats, fevers, chills, double vision, blurred vision, cough, sore throat, dysphagia, chest pain, sob, wheezing, n/v/d/c, numbness, tingling, fatigue, urinary symptoms, mood disorder s. ROS positive for right knee pain and stiffness. Admission Exam Per Admitting Provider Constitutional: well developed and well nourished; no acute distress Eyes: PERRL, conjunctivae normal, anicteric sclerae ENMT: external ear and nose normal, oropharynx normal Neck: trachea midline, no thyromegaly Respiratory: normal respiratory effort, lungs clear to auscultation Cardiovascular: RRR, no murmur, no edema Musculoskeletal: Right knee: Tenderness lateral joint line, mild effusion. Stable to valgus and varus stress. ROM 0-130. Positive Angely's. Skin: no rashes, warm and dry Neurologic: patellar DTR's 2+ bilat, sensation intact Psychiatric: A+Ox3, euthymic affect Principal Diagnosis Right knee osteoarthritis Discharge Exam Constitutional well developed and well nourished; no acute distress Eyes PERRL, conjunctivae normal, anicteric sclerae ENMT external ear and nose normal, oropharynx normal Neck trachea midline, no thyromegaly Respiratory normal respiratory effort, lungs clear to auscultation Cardiovascular RRR, no murmur, no edema Skin no rashes, warm and dry Neurologic patellar DTR's 2+ bilat, sensation intact Psychiatric A+Ox3, euthymic affect Discharge Data Allergies Allergy/AdvReac Type Severity Reaction Status Date / Time No Known Allergies Allergy Unverified 11/16/19 07:25 Consultations 11/16/19 11:38 Consult Case Management - Discharge Planning Routine Procedures Performed Operation Date: 11/16/19 09:05 Actual Procedures p Right Total Knee Arthroplasty(Right) - Vishal Kay MD Ordered Studies 11/16/19 05:00 US - OR guided needle placemen Routine Hospital Course (1) Primary osteoarthritis of right knee: Patient presented for same day admission following right total knee arthroplasty on 11/16/19. She tolerated procedure well. The Patient had an uneventful hospital course. Post-operatively, her activity was progressed and well tolerated. They participated in PT with ambulation distance of 180ft x 2 and 75ft x 1 feet. ROM of operative knee reached 80 degrees. Labs remained stable- lowest hemoglobin recorded: 11.1. Pain controlled on oral medications. Please refer to daily progress notes and PT notes for complete details. After exam on 11/17/19, patient was felt to be stable for discharge home with plans on outpatient PT starting next week. Patient will f/u in the office in about 2 weeks for further evaluation including x-rays and incision check, sooner if having any issues or concerns. H & H 10/30/19 11/17/19 Range/Units 09:55 05:55 Hgb 14.3 11.1 L (12.0-16.0) g/dL Hct 42.5 33.7 L (37-47) % Coagulation 10/30/19 Range/Units 09:55 INR 1.0 (0.9-1.1) POD#1 Right TKA -PT/OT -Pain management -DVT prophylaxis-ASA 81mg BID, TEDs, SCDs -D/C planning-home with OPPT. Discharge likely today as long as PT goes well AM labs-hemoglobin 11.1 this morning, acute blood loss anemia likely due to surgical loss vs dilutional effect Total Time Total Time Spent Total Time Spent (In Minutes): 20 Discharge Plan Discharge Items Patient Disposition: Home - Self-Care Reason For Visit: Unilateral Primary Osteoarthrits, Right Knee Discharge Diagnosis: Right knee osteoarthritis Activity: Per Instructions section Non-emergency contact: Surgeon Call non-emergency contact if: you have any medication questions, your pain is not controlled, your pain is unusual for you, your pain is concerning for you, you have a fever, your temperature is above 101, your wound has increased redness and your wound has increased drainage Follow-up/Referrals: Paco Mello MD [Primary Care Provider] - Diet: Regular Addtl Attending Provider Instructions: ACTIVITY RECOMMENDATIONS: SELF CARE INSTRUCTIONS AFTER TOTAL KNEE REPLACEMENT A. You may need to continue a physical therapy program after discharge from the hospital. There are several options available to you. Your doctor will assist you in selecting the best one for you. 1. An out-patient facility 2 to 3 times a week for therapy or home therapy. 2. Continue working on all exercises taught to you in the hospital. Your goals should be to increase bending of your knee to 90 degrees and beyond and to fully straighten your knee. B. You may progress at your own pace from walking with a walker or crutches to a cane; then to no assistive devices. C. Make walking a part of your daily routine. Be up as much as comfortable with rest periods throughout the day. Rest with leg elevation is very important. Use the ice wrap frequently for the first 3-4 weeks. D. There are no restrictions on activities. 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 E. Wear the long elastic stockings (REG hose) 20 hours a day for 2 weeks after surgery. They can be removed several times a day for laundering and for a bath. F. You may shower, no tub baths until cleared by your doctor. SPECIAL CARE INSTRUCTIONS: VERY IMPORTANT TO READ AND REVIEW A. There are a few signs you need to watch for after you are home. Call [facility] if you notice any of the followin. Increased severe knee pain. Some pain is expected especially when you exercise. 2. Increased swelling in your leg or knee; pain or swelling of the calf muscle in either lower leg. 3. Any fluid drainage from the incision. 4. Shortness of breath or chest pain. B. Please call [facility] at if you have any concerns or questions about your operation or recovery. The doctor or his nurse will return your call promptly. C. You must take antibiotics before dental work, bladder, bowel or other surgery. Your doctor will provide you with a permanent care to carry describing this precaution. IMPORTANT: * REMEMBER TO TAKE ASPIRIN, 81 MG, TWICE DAILY FOR 4 WEEKS UNLESS OTHERWISE DIRECTED. THIS IS YOUR BLOOD THINNER. * HIGH RISK PATIENTS MAY BE PRESCRIBED A STRONGER BLOOD THINNER. THIS WILL BE PROVIDED AT DISCHARGE. * CALL IF INCREASED PAIN, REDNESS, DRAINAGE OR FEVER GREATER THAT 101. * WEAR REG HOSE 20 HOURS PER DAY FOR 2 WEEKS. This is a large suction dressing covering your incision. This will help pull any excess drainage from the wound and allow your incision to heal properly. You may shower with this if you can keep the unit outside of the shower. If any bleeding or leakage is noted please call your doctor's office. This will remain on your incision for 7 days and then should be removed. This can be done yo urself or by the home nursing staff if applicable. The entire unit is disposable once removed. Once removed, keep incision clean and dry. If redness or drainage is noted, please call your surgeon. FOLLOW UP VISIT: If appointment is not already scheduled: Please call [facility] to make a follow-up appointment for 2 weeks after your surgery at . Stand-Alone Forms: [facility], Opioid Pain Management, Work/School Release (Inpt), Smoking Cessation Medications and DC Order Prescriptions: New celecoxib [Celebrex] 200 mg Capsule 200 mg PO BID Qty: 60 RF: 0 aspirin 81 mg Tablet,Delayed Release (Dr/Ec) 81 mg PO BID Qty: 60 RF: 0 acetaminophen 500 mg Tablet 1,000 mg PO Q8 Qty: 60 RF: 0 oxycodone 5 mg Tablet 5 - 10 mg PO .Q4H-6H PRN (Reason: pain) Qty: 30 RF: 0 Continued calcium carbonate [Calcium 500] 500 mg calcium (1,250 mg) Tablet 500 mg PO HS RF: 0 lorazepam 1 mg Tablet 1 mg PO TID PRN (Reason: Anxiety) RF: 0 fluoxetine [Prozac] 20 mg Capsule 20 mg PO HS RF: 0 cholecalciferol (vitamin D3) [Vitamin D3] 125 mcg (5,000 unit) Tablet 5,000 unit PO HS RF: 0 cyclobenzaprine 10 mg Tablet 10 mg PO TID PRN (Reason: Pain) RF: 0 clonidine HCl 0.1 mg Tablet 0.2 mg PO HS RF: 0 pantoprazole 20 mg Tablet,Delayed Release (Dr/Ec) 20 mg PO DAILY RF: 0 Discontinued hydrocodone-acetaminophen 7.5-325 mg Tablet 1 tab PO QID PRN (Reason: Pain) RF: 0 Discharge Orders: Discharge Order (Routine); Ordered 11/17/19 Ordered By: Kolton Neves/Other Patient Handouts: Surgery Prevent DVT After Admission Data Admit Date/Time: 11/16/19 10:48 Attending Provider: Vishal Kay Admit Provider: Vishal Kay Primary Care Provider: Paco Mello Other Interventions: Discharge Summary Assessment (RN) Last Done: 11/17/19 09:29 DC Date/Time DO NOT enter until pt leaves facility: 11/17/19 14:44
== END 2019-11-17 14:44 | disposition home or self-care (01) | DRG 470 ==
LOC: ASU 06:47 → INTOOBSV 10:48 → 3E 10:48